=== PATIENT | male | born 1970 | race Caucasian/White ===

== ENCOUNTER 2017-08-31 06:06 | Emergency (ER) | payer OTHER ==
[~2017-08-31] VITALS: Ht 205.7 cm; Wt 101.2 kg
[~2017-08-31 06:06] MED LIST: CEPHALEXIN; GABA800T PO; HYDR-3924 PO; LOSA1TAB9 PO; SOM350 PO
[2017-08-31 06:18] VITALS: BP_SYST 144
--- NOTE | 2017-08-31 06:18 | NUR ---
Patient to ER bed 4 to gown for evaluation. Side rails up. Report given to VIK MCGHEE.
--- NOTE | 2017-08-31 06:20 | NUR ---
Pt is here for PICC line removal. Will continue to monitor. No distress noted. AAOx4.
--- NOTE | 2017-08-31 07:27 | NUR ---
Dr. Cortes at bedside
--- NOTE | 2017-08-31 07:45 | NUR ---
Advised pt that we will be getting a hold of PMD Dr. Askew regarding the PICC line
--- NOTE | 2017-08-31 08:10 | NUR ---
Patient does not wish to proceed with medical care recommended by Dr. Cortes. Patient given information related to possible complications, up to and including , which could occur as a result of leaving hospital at this time. Patient verbalizes understanding of risks involved leaving against medical advice. Patient has signed AMA form.
--- NOTE | 2017-08-31 08:10 | NUR ---
Told the pt that we cannot take out the PICC line until we got a hold of PMD. Pt states that he didn't want to wait anymore. Speaking with SUMI BABCOCK.
== END 2017-08-31 08:10 | disposition left against medical advice (07) ==
LOC: SED 06:06
DX: Z45.2 Encounter for adjustment and management of vascular access device (principal); Z90.89 Acquired absence of other organs; Z98.890 Other specified postprocedural states
CPT/HCPCS: 99281

== ENCOUNTER 2018-02-16 10:34 | Inpatient (IN) | payer OTHER ==
[~2018-02-16] VITALS: Ht 205.7 cm; Wt 100.7 kg
[2018-02-16 10:34] VITALS: BP_SYST 112
[2018-02-16] MEDS ORDERED: ONDANSETRON HCL 4 MG/2 ML VIAL IVP ONE (11:15)
[2018-02-16] MEDS ORDERED: MORPHINE 4 MG/ML INJ. SYRINGE IVP ONE ×3 (11:15→15:15)
[2018-02-16] MEDS ORDERED: ASPIRIN 81 MG TAB.CHEW PO ONE (11:15)
[2018-02-16 11:44] LABS: BASOPHILS % (AUTO) 0.5 % (0.0-2.0); EOSINOPHILS # (AUTO) 0.1 K/uL (0.0-0.4); EOSINOPHILS % (AUTO) 0.7 % (0.0-4.0); HEMOGLOBIN 7.6 g/dL (14.0-18.0); LYMPHOCYTES # (AUTO) 0.5 K/uL (1.0-5.5); LYMPHOCYTES % (AUTO) 6.3 % (20.5-51.5); MEAN CORPUSCULAR HEMOGLOBIN 28 pg (27-31); MEAN CORPUSCULAR HGB CONC 32 % (32-36); MEAN CORPUSCULAR VOLUME 87 fL (79.0-98.0); MONOCYTES # (AUTO) 0.6 K/uL (0.0-1.0); MONOCYTES % (AUTO) 7.2 % (1.7-9.3); NEUTROPHILS # (AUTO) 7.1 K/uL (1.8-7.7); NEUTROPHILS % (AUTO) 85.3 % (40.0-70.0); PLATELET COUNT (AUTO) 124 K/uL (130-430); RED BLOOD CELL COUNT(AUTO) 2.75 MIL/uL (4.2-6.2); RED CELL DISTRIBUTION WIDTH 18.1 % (9.0-15.0); WHITE BLOOD COUNT (AUTO) 8.3 K/uL (4.8-10.8)
[2018-02-16 11:48] LABS: ANION GAP 10 (5-15); CALCIUM 8.3 mg/dL (8.4-11.0); CHLORIDE 100 mmol/L (98-107); CREATININE 0.95 mg/dL (0.55-1.30); GLUCOSE 139 mg/dL (70-99); SODIUM SERUM 133 mmol/L (136-145); UREA NITROGEN, BLOOD 8 mg/dL (8-21)
[2018-02-16 11:50] LABS: GFR AFRICAN AMERICAN 108 mL/min (>90)
[2018-02-16 11:52] LABS: INR 1.6 (0.80-1.20); PROTHROMBIN TIME 15.6 SECS (9.5-12.5)
[2018-02-16 11:56] LABS: ALANINE AMINOTRANSFERASE 7 U/L (12-78); ALBUMIN 1.3 g/dL (3.4-4.8); ASPARTATE AMINOTRANSFERASE 21 U/L (10-37); TOTAL BILIRUBIN 4.3 mg/dL (0.0-1.0)
[2018-02-16 12:09] LABS: LIPASE 10993 U/L (73-393)
[2018-02-16] MEDS ORDERED: POTASSIUM CHLORIDE 20 MEQ TAB.PRT.SR PO ONE (12:45)
[2018-02-16] MEDS ORDERED: TRAZ-123 PO (12:46)
[2018-02-16] MEDS ORDERED: CLON1TAB5 PO (12:46)
[2018-02-16] MEDS ORDERED: TRAM50TA2 PO (12:46)
[2018-02-16] MEDS ORDERED: IOHEXOL 350 mgI/mL, 150 ML INFUS..BTL IV ONE (13:01)
[2018-02-16] MEDS ORDERED: PANTOPRAZOLE SODIUM 40 MG/VIAL (PROTONIX) IVP ONE (15:00)
[2018-02-16] MEDS ORDERED: NACL 0.9% 1,000 ML IV ONE (15:00)
[2018-02-16 15:03] LABS: BILIRUBIN,URINE 2+ (NEGATIVE); CLARITY/URINE CLEAR (CLEAR); GLUCOSE,URINE NEGATIVE (NEGATIVE); KETONES,URINE NEGATIVE (NEGATIVE); LEUKOCYTE ESTERASE ,URINE TRACE (NEGATIVE); NITRITE, URINE POSITIVE (NEGATIVE); PH,URINE 7.5 (5.0-8.0); PROTEIN URINE NEGATIVE (NEGATIVE)
[2018-02-16 15:17] LABS: BLOOD, URINE TRACE (NEGATIVE); COLOR,URINE AMBER (YELLOW); UROBILINOGEN,URINE >=8 (0.2-1.0)
[2018-02-16 15:19] LABS: BACTERIA,URINE MODERATE /HPF (None Seen); MUCUS,URINE None Seen /LPF (None Seen); RBC,URINE 0-3 /HPF (0-3)
[2018-02-16 15:26] VITALS: BP_SYST 121
[2018-02-16] MEDS: D5NS 1,000 ML IV SCH ×2 (15:56→23:15)
[2018-02-16 19:15] VITALS: BP_SYST 110
[2018-02-16] MEDS: MORPHINE 2 MG/ML INJ. SYRINGE IVP PRN ×2 (19:35→23:15)
[2018-02-16] MEDS: GABAPENTIN 400 MG CAPSULE PO SCH (21:00)
[2018-02-16 21:27] LABS: HEMATOCRIT 22.4 % (36-54)
[2018-02-16 21:29] LABS: HEMOGLOBIN 7.4 g/dL (14.0-18.0)
[2018-02-16] MEDS: PANTOPRAZOLE SODIUM 40 MG/VIAL (PROTONIX) IVP SCH (22:10)
[2018-02-17] VITALS (11 sets, daily range): BP systolic 94–115
[2018-02-17 02:55] LABS: HEMATOCRIT 22.8 % (36-54); HEMOGLOBIN 7.3 g/dL (14.0-18.0)
[2018-02-17] MEDS: MORPHINE 2 MG/ML INJ. SYRINGE IVP PRN ×3 (03:01→10:23)
[2018-02-17] MEDS: D5NS 1,000 ML IV SCH ×2 (06:40→17:07)
[2018-02-17] MEDS: clonazePAM 0.5 MG TABLET PO SCH (08:36)
[2018-02-17] MEDS: PANTOPRAZOLE SODIUM 40 MG/VIAL (PROTONIX) IVP SCH ×2 (08:37→20:17)
[2018-02-17] MEDS: GABAPENTIN 400 MG CAPSULE PO SCH ×4 (08:37→20:18)
[2018-02-17 09:03] LABS: HEMOGLOBIN 7.7 g/dL (14.0-18.0)
[2018-02-17] MEDS ORDERED: CARISOPRODOL 350 MG TABLET PO SCH (09:45)
[2018-02-17] MEDS ORDERED: HYDROcodone/ACETAMIN 7.5-325 MG TAB PO SCH (09:45)
[2018-02-17] MEDS ORDERED: traMADol HCL HCL 50 MG TABLET (ULTRAM) PO SCH (09:45)
[2018-02-17] MEDS: cefTRIAXone 1 GM in D5W 50 ML IV SCH (10:54)
[2018-02-17] MEDS ORDERED: NORMAL SALINE 5 ML DISP.SYRIN IVF SCH (14:00)
[2018-02-17] MEDS: MORPHINE 4 MG/ML INJ. SYRINGE IVP PRN ×3 (14:16→22:29)
[2018-02-17 15:41] LABS: HEMATOCRIT 24.1 % (36-54); HEMOGLOBIN 7.8 g/dL (14.0-18.0)
[2018-02-17] MEDS: traZODone HCL 50 MG TABLET (DESYREL) PO SCH (20:18)
[2018-02-17] MEDS: LACTULOSE 20 GM/30 ML UDC PO SCH (20:18)
[2018-02-17 21:19] LABS: HEMATOCRIT 24.1 % (36-54); HEMOGLOBIN 7.6 g/dL (14.0-18.0)
[2018-02-18] MEDS: D5NS 1,000 ML IV SCH ×3 (00:03→19:57)
[2018-02-18] MEDS: MORPHINE 4 MG/ML INJ. SYRINGE IVP PRN ×5 (03:57→21:08)
[2018-02-18 04:37] LABS: BASOPHILS # (AUTO) 0.1 K/uL (0.0-0.2); BASOPHILS % (AUTO) 1.2 % (0.0-2.0); EOSINOPHILS # (AUTO) 0.2 K/uL (0.0-0.4); EOSINOPHILS % (AUTO) 3.6 % (0.0-4.0); HEMATOCRIT 25.3 % (36-54); HEMOGLOBIN 8.2 g/dL (14.0-18.0); LYMPHOCYTES # (AUTO) 1.1 K/uL (1.0-5.5); LYMPHOCYTES % (AUTO) 21.1 % (20.5-51.5); MEAN CORPUSCULAR HEMOGLOBIN 29 pg (27-31); MEAN CORPUSCULAR HGB CONC 32 % (32-36); MEAN CORPUSCULAR VOLUME 88 fL (79.0-98.0); MONOCYTES # (AUTO) 0.4 K/uL (0.0-1.0); MONOCYTES % (AUTO) 7.2 % (1.7-9.3); NEUTROPHILS # (AUTO) 3.5 K/uL (1.8-7.7); NEUTROPHILS % (AUTO) 66.9 % (40.0-70.0); PLATELET COUNT (AUTO) 190 K/uL (130-430); RED BLOOD CELL COUNT(AUTO) 2.86 MIL/uL (4.2-6.2); RED CELL DISTRIBUTION WIDTH 17.1 % (9.0-15.0)
[2018-02-18 04:42] LABS: WHITE BLOOD COUNT (AUTO) 5.3 K/uL (4.8-10.8)
[2018-02-18 05:04] LABS: ALBUMIN 1.4 g/dL (3.4-4.8); CREATININE 0.82 mg/dL (0.55-1.30); POTASSIUM 3.5 mmol/L (3.5-5.1); TOTAL BILIRUBIN 2.1 mg/dL (0.0-1.0)
[2018-02-18 05:50] LABS: TOTAL IRON BIND. CAPACITY 133 ug/dL (250-450)
[2018-02-18 08:00] VITALS: BP_SYST 116
[2018-02-18] MEDS: GABAPENTIN 400 MG CAPSULE PO SCH ×4 (08:36→20:33)
[2018-02-18] MEDS: clonazePAM 0.5 MG TABLET PO SCH (08:37)
[2018-02-18] MEDS: LACTULOSE 20 GM/30 ML UDC PO SCH ×3 (08:37→20:39)
[2018-02-18] MEDS: PANTOPRAZOLE SODIUM 40 MG/VIAL (PROTONIX) IVP SCH ×2 (08:39→20:32)
[2018-02-18] MEDS: THIAMINE HCL 100 MG TABLET PO SCH (08:39)
[2018-02-18] MEDS: FUROSEMIDE 40 MG TABLET PO SCH (08:39)
[2018-02-18] MEDS: MULTIVITAMINS TAB 1 TABLET PO SCH (08:40)
[2018-02-18] MEDS: SPIRONOLACTONE 25 MG TABLET (ALDACTONE) PO SCH (08:40)
[2018-02-18] MEDS: FOLIC ACID 1 MG TABLET PO SCH (08:40)
[2018-02-18] MEDS: cefTRIAXone 1 GM in D5W 50 ML IV SCH (08:49)
[2018-02-18 12:00] VITALS: BP_SYST 110
[2018-02-18] MEDS: metroNIDAZOLE 500 MG TABLET PO SCH ×2 (14:32→21:07)
[2018-02-18 16:00] VITALS: BP_SYST 136
[2018-02-18 20:00] VITALS: BP_SYST 118
[2018-02-18] MEDS: traZODone HCL 50 MG TABLET (DESYREL) PO SCH (20:33)
[2018-02-18 23:49] VITALS: BP_SYST 135
[2018-02-19] MEDS: MORPHINE 4 MG/ML INJ. SYRINGE IVP PRN ×6 (00:59→21:20)
[2018-02-19] MEDS: metroNIDAZOLE 500 MG TABLET PO SCH ×3 (05:07→21:19)
[2018-02-19 06:59] LABS: BASOPHILS # (AUTO) 0.1 K/uL (0.0-0.2); BASOPHILS % (AUTO) 1.5 % (0.0-2.0); EOSINOPHILS # (AUTO) 0.2 K/uL (0.0-0.4); HEMATOCRIT 25.1 % (36-54); HEMOGLOBIN 8.1 g/dL (14.0-18.0); LYMPHOCYTES % (AUTO) 20.7 % (20.5-51.5); MEAN CORPUSCULAR HEMOGLOBIN 29 pg (27-31); MEAN CORPUSCULAR HGB CONC 32 % (32-36); MEAN CORPUSCULAR VOLUME 89 fL (79.0-98.0); MONOCYTES # (AUTO) 0.5 K/uL (0.0-1.0); MONOCYTES % (AUTO) 9.9 % (1.7-9.3); NEUTROPHILS # (AUTO) 3.2 K/uL (1.8-7.7); NEUTROPHILS % (AUTO) 63.9 % (40.0-70.0); PLATELET COUNT (AUTO) 170 K/uL (130-430); RED BLOOD CELL COUNT(AUTO) 2.84 MIL/uL (4.2-6.2); RED CELL DISTRIBUTION WIDTH 17.2 % (9.0-15.0)
[2018-02-19 07:04] LABS: ALBUMIN 1.5 g/dL (3.4-4.8); CALCIUM 8.1 mg/dL (8.4-11.0); CREATININE 0.9 mg/dL (0.55-1.30); TOTAL BILIRUBIN 1.7 mg/dL (0.0-1.0)
[2018-02-19 07:31] LABS: POTASSIUM 2.9 mmol/L (3.5-5.1)
[2018-02-19] MEDS ORDERED: POTASSIUM CHLORIDE 20 MEQ TAB.PRT.SR PO ONE (09:00)
[2018-02-19] MEDS: MULTIVITAMINS TAB 1 TABLET PO SCH (09:02)
[2018-02-19] MEDS: THIAMINE HCL 100 MG TABLET PO SCH (09:02)
[2018-02-19] MEDS: GABAPENTIN 400 MG CAPSULE PO SCH ×4 (09:02→20:37)
[2018-02-19] MEDS: PANTOPRAZOLE SODIUM 40 MG/VIAL (PROTONIX) IVP SCH ×2 (09:02→20:37)
[2018-02-19] MEDS: clonazePAM 0.5 MG TABLET PO SCH (09:03)
[2018-02-19] MEDS: SPIRONOLACTONE 25 MG TABLET (ALDACTONE) PO SCH (09:03)
[2018-02-19] MEDS: FUROSEMIDE 40 MG TABLET PO SCH (09:03)
[2018-02-19] MEDS: FOLIC ACID 1 MG TABLET PO SCH (09:03)
[2018-02-19] MEDS: LACTULOSE 20 GM/30 ML UDC PO SCH ×2 (09:04→20:37)
[2018-02-19] MEDS: cefTRIAXone 1 GM in D5W 50 ML IV SCH (09:09)
[2018-02-19] MEDS: D5NS 1,000 ML IV SCH (09:19)
[2018-02-19 12:22] VITALS: BP_SYST 118
[2018-02-19 17:14] VITALS: BP_SYST 122
[2018-02-19 19:50] VITALS: BP_SYST 129
[2018-02-19] MEDS: traZODone HCL 50 MG TABLET (DESYREL) PO SCH (20:37)
[2018-02-20] VITALS (7 sets, daily range): BP systolic 113–128
[2018-02-20] MEDS: MORPHINE 4 MG/ML INJ. SYRINGE IVP PRN ×6 (01:24→21:23)
[2018-02-20] MEDS: D5NS 1,000 ML IV SCH ×2 (01:57→17:13)
[2018-02-20] MEDS: metroNIDAZOLE 500 MG TABLET PO SCH ×3 (05:20→21:23)
[2018-02-20] MEDS: PANTOPRAZOLE SODIUM 40 MG/VIAL (PROTONIX) IVP SCH ×2 (09:18→21:22)
[2018-02-20] MEDS: GABAPENTIN 400 MG CAPSULE PO SCH ×4 (09:19→21:23)
[2018-02-20] MEDS: MULTIVITAMINS TAB 1 TABLET PO SCH (09:19)
[2018-02-20] MEDS: clonazePAM 0.5 MG TABLET PO SCH (09:19)
[2018-02-20] MEDS: FOLIC ACID 1 MG TABLET PO SCH (09:20)
[2018-02-20] MEDS: FUROSEMIDE 40 MG TABLET PO SCH (09:20)
[2018-02-20] MEDS: THIAMINE HCL 100 MG TABLET PO SCH (09:20)
[2018-02-20] MEDS: SPIRONOLACTONE 25 MG TABLET (ALDACTONE) PO SCH (09:21)
[2018-02-20] MEDS: LACTULOSE 20 GM/30 ML UDC PO SCH ×2 (09:23→21:22)
[2018-02-20] MEDS: cefTRIAXone 1 GM in D5W 50 ML IV SCH (09:28)
[2018-02-20] MEDS: traZODone HCL 50 MG TABLET (DESYREL) PO SCH (21:23)
[2018-02-21] VITALS: BP_SYST 115
[2018-02-21] MEDS: metroNIDAZOLE 500 MG TABLET PO SCH ×2 (05:29→13:37)
[2018-02-21 05:30] VITALS: BP_SYST 112
[2018-02-21] MEDS: MORPHINE 4 MG/ML INJ. SYRINGE IVP PRN ×3 (05:30→13:37)
[2018-02-21 06:23] LABS: BASOPHILS # (AUTO) 0.1 K/uL (0.0-0.2); BASOPHILS % (AUTO) 2.3 % (0.0-2.0); EOSINOPHILS # (AUTO) 0.4 K/uL (0.0-0.4); EOSINOPHILS % (AUTO) 6.8 % (0.0-4.0); HEMATOCRIT 25.1 % (36-54); LYMPHOCYTES # (AUTO) 1.2 K/uL (1.0-5.5); LYMPHOCYTES % (AUTO) 22.2 % (20.5-51.5); MEAN CORPUSCULAR HEMOGLOBIN 28 pg (27-31); MEAN CORPUSCULAR HGB CONC 32 % (32-36); MEAN CORPUSCULAR VOLUME 88 fL (79.0-98.0); MONOCYTES # (AUTO) 0.7 K/uL (0.0-1.0); MONOCYTES % (AUTO) 12.3 % (1.7-9.3); NEUTROPHILS # (AUTO) 2.9 K/uL (1.8-7.7); NEUTROPHILS % (AUTO) 56.4 % (40.0-70.0); PLATELET COUNT (AUTO) 179 K/uL (130-430); RED BLOOD CELL COUNT(AUTO) 2.85 MIL/uL (4.2-6.2); RED CELL DISTRIBUTION WIDTH 18.1 % (9.0-15.0); WHITE BLOOD COUNT (AUTO) 5.3 K/uL (4.8-10.8)
[2018-02-21 06:41] LABS: ALBUMIN 1.6 g/dL (3.4-4.8); CALCIUM 8.1 mg/dL (8.4-11.0); CREATININE 0.87 mg/dL (0.55-1.30); POTASSIUM 3.1 mmol/L (3.5-5.1); TOTAL BILIRUBIN 1.3 mg/dL (0.0-1.0)
[2018-02-21 07:15] LABS: HEMOGLOBIN 8.1 g/dL (14.0-18.0)
[2018-02-21] MEDS ORDERED: POTASSIUM CHLORIDE 20 MEQ TAB.PRT.SR PO ONE (07:30)
[2018-02-21] MEDS ORDERED: HYDROcodone/ACETAMIN 7.5-325 MG TAB PO PRN (07:47)
[2018-02-21] MEDS ORDERED: CARISOPRODOL 350 MG TABLET PO PRN (07:47)
[2018-02-21 08:00] VITALS: BP_SYST 113
[2018-02-21] MEDS: PANTOPRAZOLE SODIUM 40 MG/VIAL (PROTONIX) IVP SCH (09:12)
[2018-02-21] MEDS: GABAPENTIN 400 MG CAPSULE PO SCH ×2 (09:12→13:37)
[2018-02-21] MEDS: LACTULOSE 20 GM/30 ML UDC PO SCH (09:13)
[2018-02-21] MEDS: clonazePAM 0.5 MG TABLET PO SCH (09:13)
[2018-02-21] MEDS: THIAMINE HCL 100 MG TABLET PO SCH (09:13)
[2018-02-21] MEDS: MULTIVITAMINS TAB 1 TABLET PO SCH (09:13)
[2018-02-21] MEDS: FOLIC ACID 1 MG TABLET PO SCH (09:14)
[2018-02-21] MEDS: SPIRONOLACTONE 25 MG TABLET (ALDACTONE) PO SCH (09:14)
[2018-02-21] MEDS: FUROSEMIDE 40 MG TABLET PO SCH (09:14)
[2018-02-21] MEDS: cefTRIAXone 1 GM in D5W 50 ML IV SCH (09:15)
[2018-02-21 11:26] VITALS: BP_SYST 126
[2018-02-21] MEDS: D5NS 1,000 ML IV SCH (13:51)
[2018-02-21 14:59] VITALS: BP_SYST 111
[2018-02-21 15:23] VITALS: BP_SYST 123
== END 2018-02-21 15:50 | disposition home health service (06) | DRG 439 ==
LOC: SED 10:34 → STU 14:53
PROVIDERS: ADMIT Internal Medicine Hospice and Palliative Medicine; ATTEND Internal Medicine Hospice and Palliative Medicine
PROC: 30233N1 Transfusion of Nonautologous Red Blood Cells into Peripheral Vein, Percutaneous Approach (ICD-10-PCS; principal; 2018-02-17)
DX: K85.20 Alcohol induced acute pancreatitis without necrosis or infection (principal); K76.6 Portal hypertension; L97.828 Non-pressure chronic ulcer of other part of left lower leg with other specified severity; L97.818 Non-pressure chronic ulcer of other part of right lower leg with other specified severity; D64.9 Anemia, unspecified; K86.1 Other chronic pancreatitis; F10.20 Alcohol dependence, uncomplicated; K70.10 Alcoholic hepatitis without ascites; K74.60 Unspecified cirrhosis of liver; W18.30XA Fall on same level, unspecified, initial encounter; R16.2 Hepatomegaly with splenomegaly, not elsewhere classified; I10 Essential (primary) hypertension; K57.90 Diverticulosis of intestine, part unspecified, without perforation or abscess without bleeding; K80.80 Other cholelithiasis without obstruction; M14.679 Charcot's joint, unspecified ankle and foot; Z85.819 Personal history of malignant neoplasm of unspecified site of lip, oral cavity, and pharynx; Z90.49 Acquired absence of other specified parts of digestive tract; Y93.89 Activity, other specified; Y92.89 Other specified places as the place of occurrence of the external cause; Y99.8 Other external cause status; Z91.19 Patient's noncompliance with other medical treatment and regimen
CPT/HCPCS: 36415; 71045; 71275; 80053; 81000-TC; 82140-TC; 82550-TC; 83540-TC; 83550-TC; 83605; 83690-TC; 83880; 84484; 85018-TC; 85025; 85379; 85610-TC; 85730-TC; 86886; 86900; 86901; 86920; 87040-TC; 87081; 87086; 93005; 93970; 96374; 96375; 96376; 97116-GP; 97530-GP; 99285; C9113; J0696; J2270; J2405; J7042; J7060; P9021; Q9967

== ENCOUNTER 2018-03-27 08:02 | Inpatient (IN) | payer OTHER ==
[~2018-03-27] VITALS: Ht 205.7 cm; Wt 98.9 kg
[2018-03-27] VITALS (14 sets, daily range): BP systolic 116–157
[~2018-03-27 08:02] MED LIST changes: +CLON1TAB5 PO; +TRAM50TA2 PO; +TRAZ-123 PO
[2018-03-27] MEDS ORDERED: PANTOPRAZOLE SODIUM 40 MG/VIAL (PROTONIX) IVP ONE (08:30)
[2018-03-27] MEDS ORDERED: ONDANSETRON HCL 4 MG/2 ML VIAL IVP ONE (08:30)
[2018-03-27 08:37] LABS: BASOPHILS # (AUTO) 0.1 K/uL (0.0-0.2); BASOPHILS % (AUTO) 1.9 % (0.0-2.0); EOSINOPHILS # (AUTO) 0.2 K/uL (0.0-0.4); EOSINOPHILS % (AUTO) 2.5 % (0.0-4.0); HEMATOCRIT 32.9 % (36-54); HEMOGLOBIN 10.9 g/dL (14.0-18.0); LYMPHOCYTES # (AUTO) 1.8 K/uL (1.0-5.5); LYMPHOCYTES % (AUTO) 25.4 % (20.5-51.5); MEAN CORPUSCULAR HEMOGLOBIN 30 pg (27-31); MEAN CORPUSCULAR HGB CONC 33 % (32-36); MEAN CORPUSCULAR VOLUME 90 fL (79.0-98.0); MONOCYTES # (AUTO) 0.4 K/uL (0.0-1.0); MONOCYTES % (AUTO) 6.1 % (1.7-9.3); NEUTROPHILS # (AUTO) 4.7 K/uL (1.8-7.7); PLATELET COUNT (AUTO) 112 K/uL (130-430); RED BLOOD CELL COUNT(AUTO) 3.65 MIL/uL (4.2-6.2); RED CELL DISTRIBUTION WIDTH 17.6 % (9.0-15.0); WHITE BLOOD COUNT (AUTO) 7.2 K/uL (4.8-10.8)
[2018-03-27 08:45] LABS: CALCIUM 8.2 mg/dL (8.4-11.0); CREATININE 0.98 mg/dL (0.55-1.30)
[2018-03-27 08:48] LABS: INR 1.1 (0.80-1.20); PROTHROMBIN TIME 11.2 SECS (9.5-12.5)
[2018-03-27 08:50] LABS: ALBUMIN 2.7 g/dL (3.4-4.8); TOTAL BILIRUBIN 1.5 mg/dL (0.0-1.0)
[2018-03-27 09:08] LABS: POTASSIUM 2.9 mmol/L (3.5-5.1)
[2018-03-27] MEDS ORDERED: fentaNYL CITRATE/PF 100 MCG/2 ML AMP IVP ONE (09:30)
[2018-03-27] MEDS ORDERED: PROCHLORPERAZINE EDISYLATE 10 MG/2 ML VIAL IVP ONE (09:30)
[2018-03-27] MEDS ORDERED: NACL 0.9% 1,000 ML IV ONE (10:00)
[2018-03-27] MEDS ORDERED: KCL 20 mEq in 100 mL (PREMIX) 100 ML IV ONE (10:00)
[2018-03-27] MEDS ORDERED: ONDANSETRON HCL 4 MG/2 ML VIAL IVP PRN (10:15)
[2018-03-27] MEDS ORDERED: ACETAMINOPHEN 325 MG TABLET PO PRN (10:15)
[2018-03-27] MEDS ORDERED: OCTREOTIDE ACETATE 50 MCG/ML AMP IV ONE (10:30)
[2018-03-27] MEDS ORDERED: cefTRIAXone 1 GM in D5W 50 ML IV SCH (10:30)
[2018-03-27 10:57] LABS: NEUTROPHILS % (AUTO) 64.1 % (40.0-70.0)
[2018-03-27 12:48] LABS: BASOPHILS # (AUTO) 0.1 K/uL (0.0-0.2); EOSINOPHILS # (AUTO) 0.2 K/uL (0.0-0.4); MEAN CORPUSCULAR HEMOGLOBIN 30 pg (27-31); MEAN CORPUSCULAR HGB CONC 34 % (32-36)
[2018-03-27] MEDS: OCTREOTIDE ACETATE 500 MCG in NS 247.5 ML IV SCH (13:06)
[2018-03-27 13:07] LABS: HEMATOCRIT 29.2 % (36-54); HEMOGLOBIN 9.9 g/dL (14.0-18.0); PLATELET COUNT (AUTO) 77 K/uL (130-430); WHITE BLOOD COUNT (AUTO) 8.3 K/uL (4.8-10.8)
[2018-03-27 13:08] LABS: BASOPHILS % (AUTO) 1.4 % (0.0-2.0); EOSINOPHILS % (AUTO) 2.8 % (0.0-4.0); LYMPHOCYTES # (AUTO) 2.1 K/uL (1.0-5.5); LYMPHOCYTES % (AUTO) 25.3 % (20.5-51.5); MEAN CORPUSCULAR VOLUME 88 fL (79.0-98.0); MONOCYTES # (AUTO) 0.6 K/uL (0.0-1.0); MONOCYTES % (AUTO) 7.5 % (1.7-9.3); NEUTROPHILS # (AUTO) 5.3 K/uL (1.8-7.7); RED CELL DISTRIBUTION WIDTH 17.6 % (9.0-15.0)
[2018-03-27] MEDS: 0.45% NACL 1,000 ML IV SCH (13:50)
[2018-03-27] MEDS ORDERED: MORPHINE 4 MG/ML INJ. SYRINGE IVP PRN (14:30)
[2018-03-27] MEDS: PANTOPRAZOLE SODIUM 40 MG in NS 50 ML IV SCH ×3 (14:43→20:46)
[2018-03-27] MEDS: HYDROcodone/ACETAMIN 5-325 MG TAB (NORCO/ VICODIN) PO PRN ×2 (15:33→23:54)
[2018-03-27] MEDS: MORPHINE 4 MG/ML INJ. SYRINGE IVP PRN ×2 (18:07→20:47)
[2018-03-27] MEDS ORDERED: PANTOPRAZOLE SODIUM 40 MG/VIAL (PROTONIX) ONE (20:21)
[2018-03-27] MEDS ORDERED: ERTAPENEM SODIUM 1 GM/VIAL (INVANZ) ONE (23:44)
[2018-03-27] MEDS: ERTAPENEM SODIUM 1 GM in NS 50 ML IV SCH (23:48)
[2018-03-28] VITALS (24 sets, daily range): BP systolic 125–157
[2018-03-28] MEDS: MORPHINE 4 MG/ML INJ. SYRINGE IVP PRN ×6 (01:50→22:32)
[2018-03-28] MEDS ORDERED: PANTOPRAZOLE SODIUM 40 MG/VIAL (PROTONIX) ONE (04:51)
[2018-03-28] MEDS: 0.45% NACL 1,000 ML IV SCH ×3 (05:45→20:25)
[2018-03-28] MEDS: PANTOPRAZOLE SODIUM 40 MG in NS 50 ML IV SCH ×4 (05:45→20:25)
[2018-03-28 06:35] LABS: INR 1.2 (0.80-1.20); PROTHROMBIN TIME 11.8 SECS (9.5-12.5)
[2018-03-28] MEDS: HYDROcodone/ACETAMIN 5-325 MG TAB (NORCO/ VICODIN) PO PRN ×2 (07:18→15:03)
[2018-03-28 07:40] LABS: CREATININE 0.93 mg/dL (0.55-1.30); POTASSIUM 3.9 mmol/L (3.5-5.1)
[2018-03-28 07:59] LABS: ALBUMIN 2.5 g/dL (3.4-4.8); TOTAL BILIRUBIN 2.6 mg/dL (0.0-1.0)
[2018-03-28 08:38] LABS: BASOPHILS % (AUTO) 0.8 % (0.0-2.0); EOSINOPHILS # (AUTO) 0.1 K/uL (0.0-0.4); EOSINOPHILS % (AUTO) 3.6 % (0.0-4.0); HEMATOCRIT 28.5 % (36-54); HEMOGLOBIN 9.7 g/dL (14.0-18.0); LYMPHOCYTES # (AUTO) 0.9 K/uL (1.0-5.5); LYMPHOCYTES % (AUTO) 21.5 % (20.5-51.5); MEAN CORPUSCULAR HEMOGLOBIN 31 pg (27-31); MEAN CORPUSCULAR HGB CONC 34 % (32-36); MEAN CORPUSCULAR VOLUME 90 fL (79.0-98.0); MONOCYTES # (AUTO) 0.2 K/uL (0.0-1.0); MONOCYTES % (AUTO) 5.2 % (1.7-9.3); NEUTROPHILS % (AUTO) 68.9 % (40.0-70.0); RED BLOOD CELL COUNT(AUTO) 3.16 MIL/uL (4.2-6.2); RED CELL DISTRIBUTION WIDTH 16.8 % (9.0-15.0); WHITE BLOOD COUNT (AUTO) 4.2 K/uL (4.8-10.8)
[2018-03-28 08:43] LABS: PLATELET COUNT (AUTO) 42 K/uL (130-430)
[2018-03-28] MEDS: LORazepam 2 MG/ML VIAL IVP PRN (09:20)
[2018-03-28] MEDS: chlordiazePOXIDE HCL 25 MG CAPSULE PO SCH ×3 (09:20→20:25)
[2018-03-28] MEDS: OCTREOTIDE ACETATE 500 MCG in NS 247.5 ML IV SCH ×2 (09:58→10:30)
[2018-03-28 13:09] LABS: CHOLESTEROL 162 mg/dL (<200); HDL CHOLESTEROL 74 mg/dL (>45); LDL CHOLESTEROL 81 mg/dL (<100); TRIGLYCERIDES 76 mg/dL (30-150)
[2018-03-28 15:43] LABS: BILIRUBIN,URINE NEGATIVE (NEGATIVE); BLOOD, URINE 2+ (NEGATIVE); CLARITY/URINE SL HAZY (CLEAR); COLOR,URINE YELLOW (YELLOW); GLUCOSE,URINE NEGATIVE (NEGATIVE); KETONES,URINE TRACE (NEGATIVE); LEUKOCYTE ESTERASE ,URINE 2+ (NEGATIVE); NITRITE, URINE NEGATIVE (NEGATIVE); PH,URINE 7.5 (5.0-8.0); PROTEIN URINE NEGATIVE (NEGATIVE)
[2018-03-28 15:50] LABS: BACTERIA,URINE FEW /HPF (None Seen)
[2018-03-28 15:51] LABS: MUCUS,URINE None Seen /LPF (None Seen)
[2018-03-28] MEDS: BALSAM PERU/CASTOR OIL 60 GM OINT...G. TP SCH (17:26)
[2018-03-28] MEDS: ERTAPENEM SODIUM 1 GM in NS 50 ML IV SCH (22:32)
[2018-03-29] VITALS (19 sets, daily range): BP systolic 131–172
[2018-03-29 00:50] LABS: BILIRUBIN,URINE NEGATIVE (NEGATIVE); BLOOD, URINE 3+ (NEGATIVE); COLOR,URINE YELLOW (YELLOW); GLUCOSE,URINE NEGATIVE (NEGATIVE); KETONES,URINE NEGATIVE (NEGATIVE); LEUKOCYTE ESTERASE ,URINE 3+ (NEGATIVE); NITRITE, URINE NEGATIVE (NEGATIVE); PH,URINE 7.5 (5.0-8.0); PROTEIN URINE NEGATIVE (NEGATIVE)
[2018-03-29 00:56] LABS: CLARITY/URINE SLIGHTLY HAZY (CLEAR)
[2018-03-29 01:06] LABS: BACTERIA,URINE MODERATE /HPF (None Seen); RBC,URINE 20-50 /HPF (0-3); WBC,URINE 20-50 /HPF (0-3)
[2018-03-29] MEDS: PANTOPRAZOLE SODIUM 40 MG in NS 50 ML IV SCH ×3 (02:30→13:40)
[2018-03-29] MEDS: MORPHINE 4 MG/ML INJ. SYRINGE IVP PRN ×5 (02:30→19:54)
[2018-03-29] MEDS: LORazepam 2 MG/ML VIAL IVP PRN ×2 (04:24→10:56)
[2018-03-29 06:44] LABS: CALCIUM 8.4 mg/dL (8.4-11.0); CREATININE 0.9 mg/dL (0.55-1.30); POTASSIUM 3.3 mmol/L (3.5-5.1)
[2018-03-29 06:54] LABS: INR 1.2 (0.80-1.20); PROTHROMBIN TIME 12.5 SECS (9.5-12.5)
[2018-03-29 06:59] LABS: ALBUMIN 2.6 g/dL (3.4-4.8); TOTAL BILIRUBIN 2.2 mg/dL (0.0-1.0)
[2018-03-29 08:11] LABS: EOSINOPHILS # (AUTO) 0.2 K/uL (0.0-0.4); EOSINOPHILS % (AUTO) 6.9 % (0.0-4.0); HEMATOCRIT 27.8 % (36-54); HEMOGLOBIN 9.2 g/dL (14.0-18.0); LYMPHOCYTES # (AUTO) 0.8 K/uL (1.0-5.5); MEAN CORPUSCULAR HEMOGLOBIN 30 pg (27-31); MEAN CORPUSCULAR HGB CONC 33 % (32-36); MEAN CORPUSCULAR VOLUME 90 fL (79.0-98.0); MONOCYTES # (AUTO) 0.2 K/uL (0.0-1.0); MONOCYTES % (AUTO) 5.9 % (1.7-9.3); RED BLOOD CELL COUNT(AUTO) 3.09 MIL/uL (4.2-6.2); RED CELL DISTRIBUTION WIDTH 17.3 % (9.0-15.0); WHITE BLOOD COUNT (AUTO) 3.2 K/uL (4.8-10.8)
[2018-03-29] MEDS: OCTREOTIDE ACETATE 500 MCG in NS 247.5 ML IV SCH (08:15)
[2018-03-29 08:28] LABS: PLATELET COUNT (AUTO) 31 K/uL (130-430)
[2018-03-29] MEDS ORDERED: POTASSIUM CHLORIDE 20 MEQ TAB.PRT.SR PO ONE (08:45)
[2018-03-29] MEDS ORDERED: BALSAM PERU/CASTOR OIL 60 GM OINT...G. TP SCH (09:00)
[2018-03-29] MEDS: chlordiazePOXIDE HCL 25 MG CAPSULE PO SCH ×3 (09:00→21:09)
[2018-03-29] MEDS: BALSAM PERU/CASTOR OIL 60 GM OINT...G. TP SCH (09:09)
[2018-03-29] MEDS ORDERED: SIMETHICONE 40 MG/0.6 ML ML ONE (09:38)
[2018-03-29] MEDS ORDERED: DIPHENHYDRAMINE INJ 50 MG/ML VIAL ONE (09:38)
[2018-03-29] MEDS ORDERED: POTASSIUM CHLORIDE 40 MEQ, LIDOCAINE JECT 2% PF 100 MG 50 MG in NS 250 ML IV ONE (10:15)
[2018-03-29] MEDS: 0.45% NACL 1,000 ML IV SCH (10:55)
[2018-03-29 11:24] LABS: NEUTROPHILS % (AUTO) 60.2 % (40.0-70.0)
[2018-03-29] MEDS: MIDAZOLAM HCL 5 MG/5 ML VIAL ONE ×4 (12:03→12:13)
[2018-03-29] MEDS: MEPERIDINE HCL/PF 100 MG/ML AMP ONE ×2 (12:03→12:05)
[2018-03-29] MEDS: PANTOPRAZOLE SODIUM 40 MG/VIAL (PROTONIX) IVP SCH (21:09)
[2018-03-29] MEDS: ERTAPENEM SODIUM 1 GM in NS 50 ML IV SCH (21:10)
[2018-03-30] MEDS: MORPHINE 4 MG/ML INJ. SYRINGE IVP PRN ×3 (00:12→08:06)
[2018-03-30 00:24] VITALS: BP_SYST 126
[2018-03-30] MEDS: 0.45% NACL 1,000 ML IV SCH (06:24)
[2018-03-30 07:47] LABS: BASOPHILS % (AUTO) 0.8 % (0.0-2.0); EOSINOPHILS # (AUTO) 0.2 K/uL (0.0-0.4); EOSINOPHILS % (AUTO) 6.6 % (0.0-4.0); HEMATOCRIT 28.3 % (36-54); HEMOGLOBIN 9.3 g/dL (14.0-18.0); LYMPHOCYTES # (AUTO) 0.7 K/uL (1.0-5.5); LYMPHOCYTES % (AUTO) 21.9 % (20.5-51.5); MEAN CORPUSCULAR HEMOGLOBIN 30 pg (27-31); MEAN CORPUSCULAR HGB CONC 33 % (32-36); MEAN CORPUSCULAR VOLUME 91 fL (79.0-98.0); MONOCYTES # (AUTO) 0.2 K/uL (0.0-1.0); NEUTROPHILS # (AUTO) 2.2 K/uL (1.8-7.7); NEUTROPHILS % (AUTO) 64.7 % (40.0-70.0); RED BLOOD CELL COUNT(AUTO) 3.11 MIL/uL (4.2-6.2); RED CELL DISTRIBUTION WIDTH 17.1 % (9.0-15.0); WHITE BLOOD COUNT (AUTO) 3.3 K/uL (4.8-10.8)
[2018-03-30 08:03] VITALS: BP_SYST 140
[2018-03-30] MEDS: PANTOPRAZOLE SODIUM 40 MG/VIAL (PROTONIX) IVP SCH (08:06)
[2018-03-30 08:20] LABS: PLATELET COUNT (AUTO) 36 K/uL (130-430)
[2018-03-30 08:27] LABS: ALBUMIN 2.7 g/dL (3.4-4.8); CALCIUM 8.6 mg/dL (8.4-11.0); CREATININE 0.8 mg/dL (0.55-1.30); POTASSIUM 3.6 mmol/L (3.5-5.1); TOTAL BILIRUBIN 1.5 mg/dL (0.0-1.0)
[2018-03-30] MEDS: chlordiazePOXIDE HCL 25 MG CAPSULE PO SCH (08:47)
[2018-03-30] MEDS: BALSAM PERU/CASTOR OIL 60 GM OINT...G. TP SCH (09:00)
[2018-03-30] MEDS ORDERED: PRO40 PO (10:23)
[2018-03-30] MEDS ORDERED: NITR-85 PO (10:27)
[2018-03-30 10:39] VITALS: BP_SYST 140
[2018-03-30 11:35] VITALS: BP_SYST 129
== END 2018-03-30 11:15 | disposition home or self-care (01) | DRG 378 ==
LOC: SED 08:02 → SIC 11:40 → SMU 03-29 17:32
PROVIDERS: ADMIT Internal Medicine; ATTEND Internal Medicine
PROC: 0DB68ZX Excision of Stomach, Via Natural or Artificial Opening Endoscopic, Diagnostic (ICD-10-PCS; principal; 2018-03-29 12:00)
DX: K29.71 Gastritis, unspecified, with bleeding (principal); D61.818 Other pancytopenia; K76.6 Portal hypertension; N39.0 Urinary tract infection, site not specified; E78.1 Pure hyperglyceridemia; I10 Essential (primary) hypertension; G62.9 Polyneuropathy, unspecified; K70.30 Alcoholic cirrhosis of liver without ascites; G89.29 Other chronic pain; B96.20 Unspecified Escherichia coli [E. coli] as the cause of diseases classified elsewhere; Z16.12 Extended spectrum beta lactamase (ESBL) resistance; K44.9 Diaphragmatic hernia without obstruction or gangrene; K31.89 Other diseases of stomach and duodenum; F10.21 Alcohol dependence, in remission; M14.679 Charcot's joint, unspecified ankle and foot; Z87.891 Personal history of nicotine dependence; Z86.14 Personal history of Methicillin resistant Staphylococcus aureus infection; Z85.819 Personal history of malignant neoplasm of unspecified site of lip, oral cavity, and pharynx; Z90.49 Acquired absence of other specified parts of digestive tract; Z79.899 Other long term (current) drug therapy
CPT/HCPCS: 36415; 43239; 71045; 76700-TC; 80053; 80061; 81000-TC; 82105; 83690-TC; 85025; 85610-TC; 85730-TC; 86886; 86900; 86901; 87081; 87086; 93005; 96365; 96375; 99291; C9113; G0482; J0696; J0780; J1200; J1335; J2060; J2175; J2250; J2270; J2354; J2405; J3010; J3480; J7030; J7040; J7050; J7060

== ENCOUNTER 2018-04-05 07:30 | Inpatient (IN) | payer OTHER ==
[~2018-04-05] VITALS: Ht 205.7 cm; Wt 98.9 kg
[2018-04-05 07:30] VITALS: BP_SYST 151
[~2018-04-05 07:30] MED LIST changes: -LOSA1TAB9 PO; +NITR-85 PO; +PRO40 PO
[2018-04-05] MEDS ORDERED: PANTOPRAZOLE SODIUM 40 MG/VIAL (PROTONIX) IVP ONE (08:00)
[2018-04-05] MEDS ORDERED: ONDANSETRON HCL 4 MG/2 ML VIAL IVP ONE (08:00)
[2018-04-05] MEDS ORDERED: NACL 0.9% 1,000 ML IV ONE ×3 (08:00→12:15)
[2018-04-05 08:39] LABS: BASOPHILS # (AUTO) 0.1 K/uL (0.0-0.2); BASOPHILS % (AUTO) 1.3 % (0.0-2.0); EOSINOPHILS % (AUTO) 0.3 % (0.0-4.0); HEMOGLOBIN 9.9 g/dL (14.0-18.0); LYMPHOCYTES # (AUTO) 0.9 K/uL (1.0-5.5); MEAN CORPUSCULAR HEMOGLOBIN 31 pg (27-31); MEAN CORPUSCULAR HGB CONC 35 % (32-36); MEAN CORPUSCULAR VOLUME 88 fL (79.0-98.0); MONOCYTES # (AUTO) 0.6 K/uL (0.0-1.0); MONOCYTES % (AUTO) 11.1 % (1.7-9.3); NEUTROPHILS % (AUTO) 71.3 % (40.0-70.0); PLATELET COUNT (AUTO) 51 K/uL (130-430); RED BLOOD CELL COUNT(AUTO) 3.19 MIL/uL (4.2-6.2); RED CELL DISTRIBUTION WIDTH 16.9 % (9.0-15.0); WHITE BLOOD COUNT (AUTO) 5.6 K/uL (4.8-10.8)
[2018-04-05 09:00] LABS: INR 1.2 (0.80-1.20); PROTHROMBIN TIME 12.1 SECS (9.5-12.5)
[2018-04-05 09:12] LABS: CALCIUM 8.3 mg/dL (8.4-11.0); CREATININE 1.04 mg/dL (0.55-1.30); POTASSIUM 3.4 mmol/L (3.5-5.1)
[2018-04-05 09:18] LABS: ALBUMIN 2.7 g/dL (3.4-4.8); TOTAL BILIRUBIN 1.5 mg/dL (0.0-1.0)
[2018-04-05] MEDS ORDERED: PROCHLORPERAZINE EDISYLATE 10 MG/2 ML VIAL IVP ONE (12:15)
[2018-04-05] MEDS ORDERED: LORazepam 2 MG/ML VIAL (FOR ER USE) IVP ONE (12:30)
[2018-04-05 16:00] VITALS: BP_SYST 138
[2018-04-05 16:33] VITALS: BP_SYST 138
[2018-04-05] MEDS: BALSAM PERU/CASTOR OIL 60 GM OINT...G. TP SCH (17:00)
[2018-04-05] MEDS: BANANA BAG 1 EA, FOLIC ACID 1 MG, THIAMINE HCL 100 MG, MAGNESIUM SULFATE 1 GM, MVI 10 M... IV SCH ×5 (18:25)
[2018-04-05 19:51] VITALS: BP_SYST 129
[2018-04-05] MEDS: MORPHINE 4 MG/ML INJ. SYRINGE IVP PRN (20:01)
[2018-04-05] MEDS: D5NS 1,000 ML IV SCH (22:36)
[2018-04-06] MEDS: MORPHINE 4 MG/ML INJ. SYRINGE IVP PRN ×6 (00:08→22:56)
[2018-04-06 00:40] VITALS: BP_SYST 134
[2018-04-06] MEDS: LORazepam 2 MG/ML VIAL IVP PRN ×4 (01:29→20:12)
[2018-04-06 08:25] VITALS: BP_SYST 143
[2018-04-06] MEDS: D5NS 1,000 ML IV SCH ×3 (08:27→22:56)
[2018-04-06 09:07] LABS: EOSINOPHILS # (AUTO) 0.1 K/uL (0.0-0.4); EOSINOPHILS % (AUTO) 1.9 % (0.0-4.0); HEMOGLOBIN 7.8 g/dL (14.0-18.0); LYMPHOCYTES # (AUTO) 0.8 K/uL (1.0-5.5); MEAN CORPUSCULAR HEMOGLOBIN 29 pg (27-31); MONOCYTES # (AUTO) 0.3 K/uL (0.0-1.0); RED CELL DISTRIBUTION WIDTH 17.1 % (9.0-15.0)
[2018-04-06 09:25] LABS: ALBUMIN 2.4 g/dL (3.4-4.8); TOTAL BILIRUBIN 2.5 mg/dL (0.0-1.0)
[2018-04-06 09:34] LABS: BASOPHILS % (AUTO) 0.7 % (0.0-2.0); HEMATOCRIT 24.9 % (36-54); LYMPHOCYTES % (AUTO) 25.9 % (20.5-51.5); MEAN CORPUSCULAR HGB CONC 32 % (32-36); MEAN CORPUSCULAR VOLUME 91 fL (79.0-98.0); MONOCYTES % (AUTO) 9.6 % (1.7-9.3); NEUTROPHILS # (AUTO) 1.9 K/uL (1.8-7.7); NEUTROPHILS % (AUTO) 61.9 % (40.0-70.0); RED BLOOD CELL COUNT(AUTO) 2.72 MIL/uL (4.2-6.2); WHITE BLOOD COUNT (AUTO) 3.1 K/uL (4.8-10.8)
[2018-04-06 09:48] LABS: CALCIUM 7.6 mg/dL (8.4-11.0); CREATININE 0.72 mg/dL (0.55-1.30); POTASSIUM 3.2 mmol/L (3.5-5.1)
[2018-04-06 10:07] LABS: PLATELET COUNT (AUTO) 17 K/uL (130-430)
[2018-04-06 14:17] VITALS: BP_SYST 142
[2018-04-06] MEDS: BALSAM PERU/CASTOR OIL 60 GM OINT...G. TP SCH (15:47)
[2018-04-06 17:07] VITALS: BP_SYST 126
[2018-04-06] MEDS: BANANA BAG 1 EA, FOLIC ACID 1 MG, THIAMINE HCL 100 MG, MAGNESIUM SULFATE 1 GM, MVI 10 M... IV SCH ×5 (17:14)
[2018-04-06] MEDS: DOXYCYCLINE HYCLATE 100 MG CAPSULE PO SCH (20:12)
[2018-04-06 20:25] VITALS: BP_SYST 146
[2018-04-07] MEDS: MORPHINE 4 MG/ML INJ. SYRINGE IVP PRN ×2 (03:09→08:30)
[2018-04-07 04:38] VITALS: BP_SYST 146
[2018-04-07] MEDS: LORazepam 2 MG/ML VIAL IVP PRN ×3 (05:57→19:50)
[2018-04-07 07:55] LABS: TOTAL IRON BIND. CAPACITY 205 ug/dL (250-450)
[2018-04-07 08:00] VITALS: BP_SYST 149
[2018-04-07] MEDS: BALSAM PERU/CASTOR OIL 60 GM OINT...G. TP SCH (08:25)
[2018-04-07] MEDS: DOXYCYCLINE HYCLATE 100 MG CAPSULE PO SCH ×2 (08:25→22:50)
[2018-04-07] MEDS: D5NS 1,000 ML IV SCH ×2 (08:30→18:58)
[2018-04-07 08:38] LABS: THYROID STIMULATING HORMONE 1.45 uIu/mL (0.34-4.82)
[2018-04-07] MEDS ORDERED: ACETAMINOPHEN 650 MG/20.3 ML UDC PO PRN (09:45)
[2018-04-07] MEDS ORDERED: CARISOPRODOL 350 MG TABLET PO SCH (09:45)
[2018-04-07] MEDS ORDERED: traMADol HCL HCL 50 MG TABLET (ULTRAM) PO PRN (09:45)
[2018-04-07] MEDS ORDERED: HYDROcodone/ACETAMIN 7.5-325 MG TAB PO PRN (09:45)
[2018-04-07] MEDS ORDERED: ONDANSETRON HCL 4 MG/2 ML VIAL IM PRN (09:45)
[2018-04-07] MEDS ORDERED: FUROSEMIDE 20 MG TABLET PO ONE (10:00)
[2018-04-07] MEDS ORDERED: SPIRONOLACTONE 25 MG TABLET (ALDACTONE) PO ONE (10:00)
[2018-04-07] MEDS ORDERED: PANTOPRAZOLE SODIUM 40 MG TAB PO ONE (10:15)
[2018-04-07] MEDS ORDERED: clonazePAM 0.5 MG TABLET PO ONE (10:15)
[2018-04-07] MEDS: LACTULOSE 20 GM/30 ML UDC PO ONE ×2 (11:00→11:03)
[2018-04-07] MEDS: GABAPENTIN 400 MG CAPSULE PO SCH ×3 (12:05→22:50)
[2018-04-07 12:24] VITALS: BP_SYST 149
[2018-04-07 16:00] VITALS: BP_SYST 127
[2018-04-07] MEDS: BANANA BAG 1 EA, FOLIC ACID 1 MG, THIAMINE HCL 100 MG, MAGNESIUM SULFATE 1 GM, MVI 10 M... IV SCH ×5 (16:50)
[2018-04-07 20:45] VITALS: BP_SYST 138
[2018-04-07] MEDS: LACTULOSE 20 GM/30 ML UDC PO SCH (21:00)
[2018-04-07] MEDS ORDERED: PANTOPRAZOLE SODIUM 40 MG TAB PO SCH (21:00)
[2018-04-07] MEDS: traZODone HCL 50 MG TABLET (DESYREL) PO SCH (22:50)
[2018-04-07] MEDS: SPIRONOLACTONE 25 MG TABLET (ALDACTONE) PO SCH (22:51)
[2018-04-08 01:05] VITALS: BP_SYST 129
[2018-04-08] MEDS: MORPHINE 4 MG/ML INJ. SYRINGE IVP PRN ×4 (01:36→20:11)
[2018-04-08] MEDS: LORazepam 2 MG/ML VIAL IVP PRN ×3 (03:03→22:56)
[2018-04-08] MEDS: D5NS 1,000 ML IV SCH ×2 (05:00→17:05)
[2018-04-08 07:46] VITALS: BP_SYST 146
[2018-04-08] MEDS: PANTOPRAZOLE SODIUM 40 MG TAB PO SCH (08:13)
[2018-04-08] MEDS: SPIRONOLACTONE 25 MG TABLET (ALDACTONE) PO SCH ×2 (08:13→20:16)
[2018-04-08] MEDS: FUROSEMIDE 20 MG TABLET PO SCH (08:13)
[2018-04-08] MEDS: GABAPENTIN 400 MG CAPSULE PO SCH ×4 (08:14→20:12)
[2018-04-08] MEDS: DOXYCYCLINE HYCLATE 100 MG CAPSULE PO SCH ×2 (08:14→20:05)
[2018-04-08] MEDS: clonazePAM 0.5 MG TABLET PO SCH (08:14)
[2018-04-08] MEDS: BALSAM PERU/CASTOR OIL 60 GM OINT...G. TP SCH (08:15)
[2018-04-08] MEDS: LACTULOSE 20 GM/30 ML UDC PO SCH ×2 (08:15→20:13)
[2018-04-08 09:30] LABS: ALBUMIN 2.4 g/dL (3.4-4.8); CALCIUM 8.2 mg/dL (8.4-11.0); CREATININE 0.72 mg/dL (0.55-1.30); TOTAL BILIRUBIN 2.2 mg/dL (0.0-1.0)
[2018-04-08 09:48] LABS: BASOPHILS # (AUTO) 0.1 K/uL (0.0-0.2); BASOPHILS % (AUTO) 1.9 % (0.0-2.0); EOSINOPHILS # (AUTO) 0.1 K/uL (0.0-0.4); EOSINOPHILS % (AUTO) 3.5 % (0.0-4.0); HEMATOCRIT 25.2 % (36-54); HEMOGLOBIN 7.9 g/dL (14.0-18.0); LYMPHOCYTES # (AUTO) 0.8 K/uL (1.0-5.5); LYMPHOCYTES % (AUTO) 24.1 % (20.5-51.5); MEAN CORPUSCULAR HEMOGLOBIN 29 pg (27-31); MEAN CORPUSCULAR HGB CONC 31 % (32-36); MEAN CORPUSCULAR VOLUME 93 fL (79.0-98.0); MONOCYTES # (AUTO) 0.2 K/uL (0.0-1.0); MONOCYTES % (AUTO) 6.8 % (1.7-9.3); NEUTROPHILS # (AUTO) 2.2 K/uL (1.8-7.7); RED BLOOD CELL COUNT(AUTO) 2.72 MIL/uL (4.2-6.2); RED CELL DISTRIBUTION WIDTH 15.7 % (9.0-15.0); WHITE BLOOD COUNT (AUTO) 3.4 K/uL (4.8-10.8)
[2018-04-08 10:01] LABS: PLATELET COUNT (AUTO) 30 K/uL (130-430)
[2018-04-08 10:03] LABS: POTASSIUM 2.3 mmol/L (3.5-5.1)
[2018-04-08 11:53] VITALS: BP_SYST 128
[2018-04-08] MEDS: POTASSIUM CHLORIDE 40 MEQ in NS 250 ML IV SCH ×2 (13:17→16:35)
[2018-04-08 14:48] LABS: NEUTROPHILS % (AUTO) 63.7 % (40.0-70.0)
[2018-04-08 18:13] VITALS: BP_SYST 116
[2018-04-08 19:49] VITALS: BP_SYST 139
[2018-04-08] MEDS: traZODone HCL 50 MG TABLET (DESYREL) PO SCH (20:06)
[2018-04-08] MEDS: BANANA BAG 1 EA, FOLIC ACID 1 MG, THIAMINE HCL 100 MG, MAGNESIUM SULFATE 1 GM, MVI 10 M... IV SCH ×5 (20:13)
[2018-04-08 23:45] VITALS: BP_SYST 132
[2018-04-09] MEDS: D5NS 1,000 ML IV SCH ×2 (00:51→10:50)
[2018-04-09] MEDS: MORPHINE 4 MG/ML INJ. SYRINGE IVP PRN ×2 (00:51→06:34)
[2018-04-09] MEDS: LORazepam 2 MG/ML VIAL IVP PRN (04:02)
[2018-04-09 07:06] LABS: BASOPHILS % (AUTO) 1.4 % (0.0-2.0); EOSINOPHILS # (AUTO) 0.1 K/uL (0.0-0.4); EOSINOPHILS % (AUTO) 3.7 % (0.0-4.0); HEMATOCRIT 23.9 % (36-54); HEMOGLOBIN 7.9 g/dL (14.0-18.0); LYMPHOCYTES # (AUTO) 0.8 K/uL (1.0-5.5); LYMPHOCYTES % (AUTO) 25.2 % (20.5-51.5); MEAN CORPUSCULAR HEMOGLOBIN 31 pg (27-31); MEAN CORPUSCULAR HGB CONC 33 % (32-36); MEAN CORPUSCULAR VOLUME 93 fL (79.0-98.0); MONOCYTES # (AUTO) 0.3 K/uL (0.0-1.0); MONOCYTES % (AUTO) 9.9 % (1.7-9.3); NEUTROPHILS # (AUTO) 2.2 K/uL (1.8-7.7); NEUTROPHILS % (AUTO) 59.8 % (40.0-70.0); RED BLOOD CELL COUNT(AUTO) 2.56 MIL/uL (4.2-6.2); RED CELL DISTRIBUTION WIDTH 16.5 % (9.0-15.0); WHITE BLOOD COUNT (AUTO) 3.4 K/uL (4.8-10.8)
[2018-04-09 07:47] LABS: PLATELET COUNT (AUTO) 35 K/uL (130-430)
[2018-04-09 07:55] LABS: CALCIUM 7.5 mg/dL (8.4-11.0); CREATININE 0.83 mg/dL (0.55-1.30)
[2018-04-09 08:08] LABS: ALBUMIN 2.2 g/dL (3.4-4.8); TOTAL BILIRUBIN 1.4 mg/dL (0.0-1.0)
[2018-04-09 08:30] VITALS: BP_SYST 117
[2018-04-09 08:40] VITALS: BP_SYST 125
[2018-04-09] MEDS: FUROSEMIDE 20 MG TABLET PO SCH (09:00)
[2018-04-09] MEDS: LACTULOSE 20 GM/30 ML UDC PO SCH (09:00)
[2018-04-09] MEDS ORDERED: POTASSIUM CHLORIDE 20 MEQ TAB.PRT.SR PO ONE ×3 (09:30→13:30)
[2018-04-09] MEDS: GABAPENTIN 400 MG CAPSULE PO SCH (09:38)
[2018-04-09] MEDS: clonazePAM 0.5 MG TABLET PO SCH (09:38)
[2018-04-09] MEDS: PANTOPRAZOLE SODIUM 40 MG TAB PO SCH (09:38)
[2018-04-09] MEDS: SPIRONOLACTONE 25 MG TABLET (ALDACTONE) PO SCH (09:38)
[2018-04-09] MEDS: DOXYCYCLINE HYCLATE 100 MG CAPSULE PO SCH (09:39)
[2018-04-09 12:30] VITALS: BP_SYST 134
[2018-04-10 03:07] LABS: FERRITIN 249 ng/mL (30-400); FOLATE (FOLIC ACID) >20.0 ng/mL (>3.0)
== END 2018-04-09 13:15 | disposition left against medical advice (07) | DRG 554 ==
LOC: SED 07:30 → SMU 15:17
PROVIDERS: ADMIT Internal Medicine Hospice and Palliative Medicine; ATTEND Internal Medicine Hospice and Palliative Medicine
PROC: 30233R1 Transfusion of Nonautologous Platelets into Peripheral Vein, Percutaneous Approach (ICD-10-PCS; principal; 2018-04-07)
PROC: 30233N1 Transfusion of Nonautologous Red Blood Cells into Peripheral Vein, Percutaneous Approach (ICD-10-PCS; 2018-04-07)
DX: M14.671 Charcot's joint, right ankle and foot (principal); M14.672 Charcot's joint, left ankle and foot; K29.20 Alcoholic gastritis without bleeding; K70.30 Alcoholic cirrhosis of liver without ascites; F10.229 Alcohol dependence with intoxication, unspecified; G62.9 Polyneuropathy, unspecified; F17.210 Nicotine dependence, cigarettes, uncomplicated; L89.899 Pressure ulcer of other site, unspecified stage; I10 Essential (primary) hypertension; D69.6 Thrombocytopenia, unspecified; D64.9 Anemia, unspecified; Z85.819 Personal history of malignant neoplasm of unspecified site of lip, oral cavity, and pharynx; Z79.899 Other long term (current) drug therapy
CPT/HCPCS: 36415; 71045; 73721; 80053; 82550-TC; 82607; 82728; 82746; 82962; 83540-TC; 83550-TC; 83615-TC; 83690-TC; 84443-TC; 84484; 85025; 85610-TC; 85730-TC; 86140; 86886; 86900; 86901; 86920; 87070-TC; 87075-TC; 87081; 87186-TC; 93005; 96361; 96374; 96375; 99285; C9113; G0482; J0780; J2060; J2270; J2405; J3411; J3475; J3480; J3490; J7030; J7040; J7042; J7050; P9021; P9034

== ENCOUNTER 2018-05-02 19:37 | Inpatient (IN) | payer OTHER ==
[~2018-05-02] VITALS: Ht 190.5 cm; Wt 94.8 kg
[2018-05-02 19:41] VITALS: BP_SYST 151
[2018-05-02] MEDS ORDERED: NACL 0.9% 1,000 ML IV ONE (19:45)
[2018-05-02] MEDS ORDERED: ONDANSETRON HCL 4 MG/2 ML VIAL IVP ONE (20:00)
[2018-05-02 20:03] LABS: BASOPHILS % (AUTO) 0.6 % (0.0-2.0); EOSINOPHILS % (AUTO) 0.1 % (0.0-4.0); HEMATOCRIT 30.6 % (36-54); HEMOGLOBIN 10.5 g/dL (14.0-18.0); LYMPHOCYTES # (AUTO) 0.6 K/uL (1.0-5.5); LYMPHOCYTES % (AUTO) 8.1 % (20.5-51.5); MEAN CORPUSCULAR HEMOGLOBIN 30 pg (27-31); MEAN CORPUSCULAR HGB CONC 35 % (32-36); MEAN CORPUSCULAR VOLUME 88 fL (79.0-98.0); MONOCYTES # (AUTO) 0.4 K/uL (0.0-1.0); MONOCYTES % (AUTO) 5.2 % (1.7-9.3); NEUTROPHILS # (AUTO) 6.4 K/uL (1.8-7.7); PLATELET COUNT (AUTO) 78 K/uL (130-430); RED BLOOD CELL COUNT(AUTO) 3.48 MIL/uL (4.2-6.2); RED CELL DISTRIBUTION WIDTH 16.5 % (9.0-15.0); WHITE BLOOD COUNT (AUTO) 7.4 K/uL (4.8-10.8)
[2018-05-02] MEDS ORDERED: LORazepam 2 MG/ML VIAL (FOR ER USE) IVP ONE ×2 (20:15→20:30)
[2018-05-02 20:18] LABS: ANION GAP 15 (5-15); CALCIUM 8.9 mg/dL (8.4-11.0); CHLORIDE 92 mmol/L (98-107); CREATININE 1.19 mg/dL (0.55-1.30); GLUCOSE 189 mg/dL (70-99); SODIUM SERUM 128 mmol/L (136-145); UREA NITROGEN, BLOOD 4 mg/dL (8-21)
[2018-05-02 20:20] LABS: GFR AFRICAN AMERICAN 84 mL/min (>90)
[2018-05-02] MEDS ORDERED: LORazepam 2 MG/ML VIAL (FOR ER USE) ONE ×2 (20:20→20:30)
[2018-05-02 20:23] LABS: ALANINE AMINOTRANSFERASE 27 U/L (12-78); ALBUMIN 2.8 g/dL (3.4-4.8); ASPARTATE AMINOTRANSFERASE 40 U/L (10-37); INR 1.1 (0.80-1.20); PROTHROMBIN TIME 11.4 SECS (9.5-12.5)
[2018-05-02 20:26] LABS: POTASSIUM 2.9 mmol/L (3.5-5.1)
[2018-05-02 20:27] LABS: ALCOHOL, BLOOD < 3 mg/dL (<10)
[2018-05-02] MEDS ORDERED: POTASSIUM CHLORIDE 40 MEQ in NS 250 ML IV ONE (20:30)
[2018-05-02] MEDS ORDERED: DIPHENHYDRAMINE INJ 50 MG/ML VIAL IVP ONE (21:00)
[2018-05-02] MEDS ORDERED: POTASSIUM CHLORIDE 20 MEQ in NS 250 ML IV ONE ×4 (21:15)
[2018-05-02 21:23] LABS: BILIRUBIN,URINE NEGATIVE (NEGATIVE); BLOOD, URINE NEGATIVE (NEGATIVE); CLARITY/URINE CLEAR (CLEAR); COLOR,URINE YELLOW (YELLOW); GLUCOSE,URINE NEGATIVE (NEGATIVE); KETONES,URINE NEGATIVE (NEGATIVE); LEUKOCYTE ESTERASE ,URINE NEGATIVE (NEGATIVE); NITRITE, URINE NEGATIVE (NEGATIVE); PROTEIN URINE TRACE (NEGATIVE); UROBILINOGEN,URINE 0.2 (0.2-1.0)
[2018-05-02] MEDS ORDERED: KCL 20 mEq in 100 mL (PREMIX) 200 ML IV ONE (21:36)
[2018-05-02 21:50] LABS: BARBITURATE, URINE NEGATIVE (NEG <=200); BENZODIAZEPINE, URINE POSITIVE (NEG <=150); CANNABINOID, URINE NEGATIVE (NEG <=50); COCAINE, URINE NEGATIVE (NEG <=150); METHAMPHETAMINES SCREEN,URINE NEGATIVE (NEG <=500); OPIATE, URINE NEGATIVE (NEG <=100); PHENCYCLIDINE SCREEN,URINE NEGATIVE (NEG <=25); UR TRICYCLIC ANTIDEPRESSANTS NEGATIVE (NEG <=300); URINE AMPHETAMINE NEGATIVE (NEG <=500); URINE METHADONE NEGATIVE (NEG <=200); URINE OXYCODONE SCREEN NEGATIVE (NEG <=100); URINE PROPOXYPHENE SCREEN NEGATIVE (NEG <=300)
[2018-05-02 21:58] LABS: BACTERIA,URINE FEW /HPF (None Seen); COARSE GRANULAR CASTS,URINE 0-10 /LPF (None Seen); MUCUS,URINE 1+ /LPF (None Seen); RBC,URINE 0-3 /HPF (0-3); WBC,URINE 0-3 /HPF (0-3)
[2018-05-02] MEDS ORDERED: HALOPERIDOL LACTATE 5 MG/ML VIAL IVP ONE (22:00)
[2018-05-02] MEDS ORDERED: INSULIN REGULAR, HUMAN 100 UNITS/ML, 10 ML VIAL (novoLIN R) SUBCUT PRN (22:30)
[2018-05-02 23:05] VITALS: BP_SYST 123
[2018-05-02] MEDS: D5NS 1,000 ML IV SCH (23:47)
[2018-05-03 00:36] VITALS: BP_SYST 123
[2018-05-03] MEDS: LORazepam 2 MG/ML VIAL IVP PRN ×3 (01:29→23:22)
[2018-05-03 02:40] VITALS: BP_SYST 130
[2018-05-03 07:52] LABS: BASOPHILS % (AUTO) 0.7 % (0.0-2.0); EOSINOPHILS % (AUTO) 0.8 % (0.0-4.0); HEMATOCRIT 27.7 % (36-54); HEMOGLOBIN 9.4 g/dL (14.0-18.0); LYMPHOCYTES # (AUTO) 1.2 K/uL (1.0-5.5); LYMPHOCYTES % (AUTO) 21.6 % (20.5-51.5); MEAN CORPUSCULAR HEMOGLOBIN 30 pg (27-31); MEAN CORPUSCULAR HGB CONC 34 % (32-36); MEAN CORPUSCULAR VOLUME 88 fL (79.0-98.0); MONOCYTES # (AUTO) 0.4 K/uL (0.0-1.0); MONOCYTES % (AUTO) 7.2 % (1.7-9.3); NEUTROPHILS # (AUTO) 3.9 K/uL (1.8-7.7); RED BLOOD CELL COUNT(AUTO) 3.14 MIL/uL (4.2-6.2); RED CELL DISTRIBUTION WIDTH 15.8 % (9.0-15.0); WHITE BLOOD COUNT (AUTO) 5.5 K/uL (4.8-10.8)
[2018-05-03 07:53] LABS: CALCIUM 8.2 mg/dL (8.4-11.0); CREATININE 0.89 mg/dL (0.55-1.30)
[2018-05-03 07:58] LABS: ALBUMIN 2.3 g/dL (3.4-4.8); TOTAL BILIRUBIN 1.6 mg/dL (0.0-1.0)
[2018-05-03 08:00] VITALS: BP_SYST 119
[2018-05-03 08:15] LABS: PLATELET COUNT (AUTO) 45 K/uL (130-430)
[2018-05-03] MEDS ORDERED: LACTULOSE 20 GM/30 ML UDC PO ONE (09:45)
[2018-05-03 10:04] LABS: NEUTROPHILS % (AUTO) 69.7 % (40.0-70.0)
[2018-05-03 11:37] VITALS: BP_SYST 119
[2018-05-03] MEDS: D5NS 1,000 ML IV SCH ×2 (11:50→20:34)
[2018-05-03] MEDS: BANANA BAG 1 EA, FOLIC ACID 1 MG, THIAMINE HCL 100 MG, MAGNESIUM SULFATE 1 GM, MVI 10 M... IV SCH ×5 (12:53)
[2018-05-03] MEDS ORDERED: BALSAM PERU/CASTOR OIL 60 GM OINT...G. TP ONE (15:30)
[2018-05-03 16:33] VITALS: BP_SYST 133
[2018-05-03] MEDS: LACTULOSE 20 GM/30 ML UDC PO SCH ×3 (16:43→21:55)
[2018-05-03 20:40] VITALS: BP_SYST 130
[2018-05-03] MEDS: MORPHINE 4 MG/ML INJ. SYRINGE IVP PRN (21:56)
[2018-05-04 00:31] VITALS: BP_SYST 121
[2018-05-04] MEDS: D5NS 1,000 ML IV SCH ×5 (01:10→22:10)
[2018-05-04] MEDS: MORPHINE 4 MG/ML INJ. SYRINGE IVP PRN ×5 (03:37→21:41)
[2018-05-04 08:00] VITALS: BP_SYST 120
[2018-05-04] MEDS: BALSAM PERU/CASTOR OIL 60 GM OINT...G. TP SCH (09:00)
[2018-05-04] MEDS: LACTULOSE 20 GM/30 ML UDC PO SCH ×3 (09:00→22:00)
[2018-05-04] MEDS: LORazepam 2 MG/ML VIAL IVP PRN (09:04)
[2018-05-04] MEDS: BANANA BAG 1 EA, FOLIC ACID 1 MG, THIAMINE HCL 100 MG, MAGNESIUM SULFATE 1 GM, MVI 10 M... IV SCH ×5 (11:10)
[2018-05-04] MEDS ORDERED: traMADol HCL HCL 50 MG TABLET (ULTRAM) PO PRN (11:30)
[2018-05-04 12:15] VITALS: BP_SYST 125
[2018-05-04] MEDS: GABAPENTIN 400 MG CAPSULE PO SCH ×3 (12:46→22:00)
[2018-05-04 15:45] LABS: EOSINOPHILS # (AUTO) 0.1 K/uL (0.0-0.4); EOSINOPHILS % (AUTO) 2.7 % (0.0-4.0); HEMOGLOBIN 8.6 g/dL (14.0-18.0); LYMPHOCYTES # (AUTO) 0.9 K/uL (1.0-5.5); LYMPHOCYTES % (AUTO) 19.5 % (20.5-51.5); MEAN CORPUSCULAR HEMOGLOBIN 31 pg (27-31); MEAN CORPUSCULAR HGB CONC 35 % (32-36); MEAN CORPUSCULAR VOLUME 89 fL (79.0-98.0); MONOCYTES # (AUTO) 0.3 K/uL (0.0-1.0); MONOCYTES % (AUTO) 5.6 % (1.7-9.3); NEUTROPHILS # (AUTO) 3.4 K/uL (1.8-7.7); NEUTROPHILS % (AUTO) 71.2 % (40.0-70.0); RED BLOOD CELL COUNT(AUTO) 2.82 MIL/uL (4.2-6.2); RED CELL DISTRIBUTION WIDTH 16.3 % (9.0-15.0)
[2018-05-04 15:52] LABS: CALCIUM 7.4 mg/dL (8.4-11.0); CREATININE 0.83 mg/dL (0.55-1.30); PLATELET COUNT (AUTO) 35 K/uL (130-430)
[2018-05-04 15:56] LABS: POTASSIUM 2.8 mmol/L (3.5-5.1)
[2018-05-04 16:08] LABS: ALBUMIN 2.1 g/dL (3.4-4.8); THYROID STIMULATING HORMONE 2.18 uIu/mL (0.34-4.82); TOTAL BILIRUBIN 0.9 mg/dL (0.0-1.0)
[2018-05-04 16:26] VITALS: BP_SYST 116
[2018-05-04 16:26] LABS: WHITE BLOOD COUNT (AUTO) 4.7 K/uL (4.8-10.8)
[2018-05-04] MEDS ORDERED: POTASSIUM CHLORIDE 20 MEQ TAB.PRT.SR PO ONE (16:30)
[2018-05-04 19:00] VITALS: BP_SYST 116
[2018-05-04 20:00] VITALS: BP_SYST 116
[2018-05-04] MEDS ORDERED: traZODone HCL 50 MG TABLET (DESYREL) PO SCH (21:00)
[2018-05-04] MEDS: PANTOPRAZOLE SODIUM 40 MG TAB PO SCH (22:00)
[2018-05-04] MEDS ORDERED: traZODone HCL 50 MG TABLET (DESYREL) ONE (22:13)
[2018-05-04] MEDS: traZODone HCL 50 MG TABLET (DESYREL) PO SCH (22:25)
[2018-05-05] MEDS: MORPHINE 4 MG/ML INJ. SYRINGE IVP PRN ×4 (01:35→22:17)
[2018-05-05] MEDS: LORazepam 2 MG/ML VIAL IVP PRN ×3 (02:22→23:37)
[2018-05-05 02:37] VITALS: BP_SYST 121
[2018-05-05] MEDS: LACTULOSE 20 GM/30 ML UDC PO SCH ×3 (08:49→21:47)
[2018-05-05] MEDS: clonazePAM 0.5 MG TABLET PO SCH (08:50)
[2018-05-05] MEDS: GABAPENTIN 400 MG CAPSULE PO SCH ×4 (08:50→21:48)
[2018-05-05] MEDS: PANTOPRAZOLE SODIUM 40 MG TAB PO SCH ×2 (08:50→21:47)
[2018-05-05] MEDS: D5NS 1,000 ML IV SCH ×2 (08:51→22:17)
[2018-05-05 08:58] VITALS: BP_SYST 126
[2018-05-05] MEDS: BALSAM PERU/CASTOR OIL 60 GM OINT...G. TP SCH (09:00)
[2018-05-05] MEDS: BANANA BAG 1 EA, FOLIC ACID 1 MG, THIAMINE HCL 100 MG, MAGNESIUM SULFATE 1 GM, MVI 10 M... IV SCH ×5 (09:52)
[2018-05-05 12:31] VITALS: BP_SYST 113
[2018-05-05 16:27] VITALS: BP_SYST 115
[2018-05-05 19:55] VITALS: BP_SYST 119
[2018-05-05] MEDS: traZODone HCL 50 MG TABLET (DESYREL) PO SCH (21:47)
[2018-05-06 00:12] VITALS: BP_SYST 120
[2018-05-06] MEDS: MORPHINE 4 MG/ML INJ. SYRINGE IVP PRN ×4 (02:38→15:24)
[2018-05-06] MEDS: BALSAM PERU/CASTOR OIL 60 GM OINT...G. TP SCH (06:15)
[2018-05-06 08:16] VITALS: BP_SYST 123
[2018-05-06] MEDS: LACTULOSE 20 GM/30 ML UDC PO SCH ×2 (08:17→14:45)
[2018-05-06] MEDS: clonazePAM 0.5 MG TABLET PO SCH (08:18)
[2018-05-06] MEDS: GABAPENTIN 400 MG CAPSULE PO SCH ×2 (08:18→12:37)
[2018-05-06] MEDS: PANTOPRAZOLE SODIUM 40 MG TAB PO SCH (08:18)
[2018-05-06] MEDS: D5NS 1,000 ML IV SCH (08:18)
[2018-05-06] MEDS: BANANA BAG 1 EA, FOLIC ACID 1 MG, THIAMINE HCL 100 MG, MAGNESIUM SULFATE 1 GM, MVI 10 M... IV SCH ×5 (09:02)
[2018-05-06] MEDS: LORazepam 2 MG/ML VIAL IVP PRN (10:28)
[2018-05-06] MEDS ORDERED: ERTAPENEM SODIUM 1 GM in NS 50 ML IV SCH (11:30)
[2018-05-06] MEDS ORDERED: COMMUNICATION ORDER XX ONE (11:30)
[2018-05-06 11:37] VITALS: BP_SYST 116
[2018-05-06 12:20] LABS: HEMATOCRIT 23.4 % (36-54); HEMOGLOBIN 7.8 g/dL (14.0-18.0); MEAN CORPUSCULAR HEMOGLOBIN 30 pg (27-31); MEAN CORPUSCULAR HGB CONC 33 % (32-36); MEAN CORPUSCULAR VOLUME 91 fL (79.0-98.0); RED BLOOD CELL COUNT(AUTO) 2.56 MIL/uL (4.2-6.2); WHITE BLOOD COUNT (AUTO) 3.2 K/uL (4.8-10.8)
[2018-05-06 12:21] LABS: PLATELET COUNT (AUTO) 37 K/uL (130-430)
[2018-05-06 12:30] LABS: CALCIUM 7.9 mg/dL (8.4-11.0); CREATININE 0.88 mg/dL (0.55-1.30)
[2018-05-06 12:35] LABS: ALBUMIN 1.9 g/dL (3.4-4.8); TOTAL BILIRUBIN 0.8 mg/dL (0.0-1.0)
[2018-05-06] MEDS ORDERED: POTASSIUM CHLORIDE 20 MEQ TAB.PRT.SR PO ONE ×2 (13:00→13:30)
[2018-05-06 13:11] LABS: ATYPICAL LYMPHOCYTES % 0 % (0-0); BAND % (MANUAL) 0 % (0-6); LYMPHOCYTES % (MANUAL) 32 % (20-46)
[2018-05-06 13:12] LABS: BASOPHILS % (MANUAL) 0 % (0-2); EOSINOPHILS % (MANUAL) 2 % (0-7); MONOCYTES % (MANUAL) 4 % (0-11)
[2018-05-06 14:41] VITALS: BP_SYST 133
[2018-05-06 16:42] VITALS: BP_SYST 155
== END 2018-05-06 16:32 | disposition home health service (06) | DRG 540 ==
LOC: SED 19:37 → STU 22:19
PROVIDERS: ADMIT Internal Medicine Hospice and Palliative Medicine; ATTEND Internal Medicine Hospice and Palliative Medicine
DX: M86.171 Other acute osteomyelitis, right ankle and foot (principal); L97.429 Non-pressure chronic ulcer of left heel and midfoot with unspecified severity; L97.419 Non-pressure chronic ulcer of right heel and midfoot with unspecified severity; F41.1 Generalized anxiety disorder; G40.909 Epilepsy, unspecified, not intractable, without status epilepticus; I10 Essential (primary) hypertension; K74.60 Unspecified cirrhosis of liver; E87.6 Hypokalemia; F10.10 Alcohol abuse, uncomplicated; Y90.9 Presence of alcohol in blood, level not specified; F32.9 Major depressive disorder, single episode, unspecified; G47.00 Insomnia, unspecified; M14.679 Charcot's joint, unspecified ankle and foot; Z85.819 Personal history of malignant neoplasm of unspecified site of lip, oral cavity, and pharynx; Z91.19 Patient's noncompliance with other medical treatment and regimen; Z79.899 Other long term (current) drug therapy; Z80.8 Family history of malignant neoplasm of other organs or systems; Z82.49 Family history of ischemic heart disease and other diseases of the circulatory system
CPT/HCPCS: 36415; 70450-TC; 71045; 80053; 80307; 81000-TC; 82140-TC; 82962; 83690-TC; 84443-TC; 84484; 85007; 85025; 85027; 85610-TC; 85730-TC; 87081; 93005; 96365; 96375; 96376; 99285; G0378; G0481; G0482; J1200; J1335; J1630; J2060; J2270; J2405; J3411; J3475; J3480; J3490; J7030; J7042; J7050

== ENCOUNTER 2018-05-12 01:36 | Inpatient (IN) | payer OTHER ==
[~2018-05-12] VITALS: Ht 205.7 cm; Wt 90.7 kg
[2018-05-12] VITALS (8 sets, daily range): BP systolic 109–157
[~2018-05-12 01:36] MED LIST changes: -CEPHALEXIN; -HYDR-3924 PO; -NITR-85 PO; -SOM350 PO
[2018-05-12] MEDS ORDERED: NACL 0.9% 1,000 ML IV ONE (01:59)
[2018-05-12] MEDS ORDERED: MORPHINE 4 MG/ML INJ. SYRINGE IVP ONE ×2 (02:00→03:15)
[2018-05-12] MEDS ORDERED: ONDANSETRON HCL 4 MG/2 ML VIAL IVP ONE (02:00)
[2018-05-12] MEDS ORDERED: PANTOPRAZOLE SODIUM 40 MG TAB PO ONE (02:15)
[2018-05-12 02:25] LABS: BASOPHILS # (AUTO) 0.1 K/uL (0.0-0.2); BASOPHILS % (AUTO) 1.3 % (0.0-2.0); EOSINOPHILS % (AUTO) 0.8 % (0.0-4.0); HEMATOCRIT 29.2 % (36-54); HEMOGLOBIN 9.9 g/dL (14.0-18.0); LYMPHOCYTES # (AUTO) 1.3 K/uL (1.0-5.5); LYMPHOCYTES % (AUTO) 22.5 % (20.5-51.5); MEAN CORPUSCULAR HEMOGLOBIN 30 pg (27-31); MEAN CORPUSCULAR HGB CONC 34 % (32-36); MEAN CORPUSCULAR VOLUME 90 fL (79.0-98.0); MONOCYTES # (AUTO) 0.6 K/uL (0.0-1.0); MONOCYTES % (AUTO) 10.1 % (1.7-9.3); NEUTROPHILS # (AUTO) 3.7 K/uL (1.8-7.7); NEUTROPHILS % (AUTO) 65.3 % (40.0-70.0); PLATELET COUNT (AUTO) 137 K/uL (130-430); RED BLOOD CELL COUNT(AUTO) 3.26 MIL/uL (4.2-6.2); RED CELL DISTRIBUTION WIDTH 17.4 % (9.0-15.0); WHITE BLOOD COUNT (AUTO) 5.7 K/uL (4.8-10.8)
[2018-05-12] MEDS ORDERED: FOLIC ACID 1 MG, THIAMINE HCL 100 MG, MAGNESIUM SULFATE 1 GM, MVI 10 ML in NACL 0.9% 1,... IV ONE (02:30)
[2018-05-12] MEDS ORDERED: FOLIC ACID 5 MG/ML VIAL IV ONE (02:37)
[2018-05-12] MEDS ORDERED: MAGNESIUM SULFATE 1 GM/2 ML VIAL ONE (02:37)
[2018-05-12] MEDS ORDERED: MVI 10 ML VIAL IV ONE (02:37)
[2018-05-12 02:53] LABS: CALCIUM 7.9 mg/dL (8.4-11.0); CREATININE 0.86 mg/dL (0.55-1.30)
[2018-05-12 02:54] LABS: INR 1.1 (0.80-1.20); PROTHROMBIN TIME 10.8 SECS (9.5-12.5)
[2018-05-12 02:57] LABS: ALBUMIN 2.6 g/dL (3.4-4.8); TOTAL BILIRUBIN 1.5 mg/dL (0.0-1.0)
[2018-05-12 02:59] LABS: POTASSIUM 2.5 mmol/L (3.5-5.1)
[2018-05-12] MEDS ORDERED: POTASSIUM CHLORIDE 20 MEQ TAB.PRT.SR PO ONE ×2 (03:15→03:30)
[2018-05-12 03:42] LABS: BILIRUBIN,URINE NEGATIVE (NEGATIVE); BLOOD, URINE 2+ (NEGATIVE); CLARITY/URINE CLEAR (CLEAR); COLOR,URINE YELLOW (YELLOW); GLUCOSE,URINE NEGATIVE (NEGATIVE); KETONES,URINE NEGATIVE (NEGATIVE); LEUKOCYTE ESTERASE ,URINE NEGATIVE (NEGATIVE); NITRITE, URINE NEGATIVE (NEGATIVE); PH,URINE 6.5 (5.0-8.0); PROTEIN URINE NEGATIVE (NEGATIVE); UROBILINOGEN,URINE 0.2 (0.2-1.0)
[2018-05-12] MEDS ORDERED: LACTULOSE 20 GM/30 ML UDC PO ONE (03:45)
[2018-05-12 03:58] LABS: BACTERIA,URINE FEW /HPF (None Seen); WBC,URINE 0-3 /HPF (0-3)
[2018-05-12 04:01] LABS: BARBITURATE, URINE NEGATIVE (NEG <=200); BENZODIAZEPINE, URINE POSITIVE (NEG <=150); CANNABINOID, URINE NEGATIVE (NEG <=50); COCAINE, URINE NEGATIVE (NEG <=150); METHAMPHETAMINES SCREEN,URINE NEGATIVE (NEG <=500); OPIATE, URINE POSITIVE (NEG <=100); PHENCYCLIDINE SCREEN,URINE NEGATIVE (NEG <=25); UR TRICYCLIC ANTIDEPRESSANTS NEGATIVE (NEG <=300); URINE AMPHETAMINE NEGATIVE (NEG <=500); URINE METHADONE NEGATIVE (NEG <=200); URINE OXYCODONE SCREEN NEGATIVE (NEG <=100); URINE PROPOXYPHENE SCREEN NEGATIVE (NEG <=300)
[2018-05-12] MEDS ORDERED: ONDANSETRON HCL 4 MG/2 ML VIAL IVP PRN (05:30)
[2018-05-12] MEDS ORDERED: ALBUTEROL SULFATE 0.083% 2.5 MG/3 ML VIAL.NEB INH PRN (05:30)
[2018-05-12] MEDS: MORPHINE 4 MG/ML INJ. SYRINGE IVP PRN ×5 (06:17→23:42)
[2018-05-12 07:04] LABS: BASOPHILS # (AUTO) 0.1 K/uL (0.0-0.2); BASOPHILS % (AUTO) 1.2 % (0.0-2.0); EOSINOPHILS # (AUTO) 0.1 K/uL (0.0-0.4); EOSINOPHILS % (AUTO) 1.6 % (0.0-4.0); HEMOGLOBIN 8.8 g/dL (14.0-18.0); LYMPHOCYTES # (AUTO) 1.2 K/uL (1.0-5.5); LYMPHOCYTES % (AUTO) 24.7 % (20.5-51.5); MEAN CORPUSCULAR HEMOGLOBIN 30 pg (27-31); MEAN CORPUSCULAR HGB CONC 34 % (32-36); MEAN CORPUSCULAR VOLUME 90 fL (79.0-98.0); MONOCYTES # (AUTO) 0.6 K/uL (0.0-1.0); MONOCYTES % (AUTO) 12.1 % (1.7-9.3); NEUTROPHILS # (AUTO) 2.9 K/uL (1.8-7.7); NEUTROPHILS % (AUTO) 60.4 % (40.0-70.0); PLATELET COUNT (AUTO) 101 K/uL (130-430); RED BLOOD CELL COUNT(AUTO) 2.89 MIL/uL (4.2-6.2); RED CELL DISTRIBUTION WIDTH 17.2 % (9.0-15.0); WHITE BLOOD COUNT (AUTO) 4.9 K/uL (4.8-10.8)
[2018-05-12 07:08] LABS: CALCIUM 7.4 mg/dL (8.4-11.0); CREATININE 0.75 mg/dL (0.55-1.30)
[2018-05-12 07:17] LABS: ALBUMIN 2.1 g/dL (3.4-4.8)
[2018-05-12] MEDS: GABAPENTIN 400 MG CAPSULE PO SCH ×4 (08:47→21:00)
[2018-05-12] MEDS: PANTOPRAZOLE SODIUM 40 MG/VIAL (PROTONIX) IVP SCH ×2 (08:47→21:01)
[2018-05-12] MEDS: clonazePAM 0.5 MG TABLET PO SCH (08:47)
[2018-05-12] MEDS: FOLIC ACID 1 MG, THIAMINE HCL 100 MG, MAGNESIUM SULFATE 1 GM, MVI 10 ML in NACL 0.9% 1,... IV SCH (08:48)
[2018-05-12] MEDS ORDERED: METOCLOPRAMIDE HCL 10 MG/2 ML VIAL IVP PRN (09:30)
[2018-05-12] MEDS: cefTRIAXone 1 GM in D5W 50 ML IV SCH (12:25)
[2018-05-12 13:58] LABS: BASOPHILS # (AUTO) 0.1 K/uL (0.0-0.2); BASOPHILS % (AUTO) 1.5 % (0.0-2.0); EOSINOPHILS # (AUTO) 0.1 K/uL (0.0-0.4); EOSINOPHILS % (AUTO) 1.9 % (0.0-4.0); HEMATOCRIT 29.1 % (36-54); HEMOGLOBIN 9.6 g/dL (14.0-18.0); LYMPHOCYTES # (AUTO) 1.5 K/uL (1.0-5.5); LYMPHOCYTES % (AUTO) 28.5 % (20.5-51.5); MEAN CORPUSCULAR HEMOGLOBIN 30 pg (27-31); MEAN CORPUSCULAR HGB CONC 33 % (32-36); MONOCYTES # (AUTO) 0.6 K/uL (0.0-1.0); MONOCYTES % (AUTO) 11.7 % (1.7-9.3); NEUTROPHILS # (AUTO) 2.8 K/uL (1.8-7.7); NEUTROPHILS % (AUTO) 56.4 % (40.0-70.0); RED BLOOD CELL COUNT(AUTO) 3.18 MIL/uL (4.2-6.2); RED CELL DISTRIBUTION WIDTH 17.7 % (9.0-15.0); WHITE BLOOD COUNT (AUTO) 5.1 K/uL (4.8-10.8)
[2018-05-12 14:08] LABS: MEAN CORPUSCULAR VOLUME 92 fL (79.0-98.0); PLATELET COUNT (AUTO) 90 K/uL (130-430)
[2018-05-12] MEDS: traZODone HCL 50 MG TABLET (DESYREL) PO SCH (21:00)
[2018-05-13] MEDS: LORazepam 2 MG/ML VIAL IVP PRN ×4 (00:59→20:10)
[2018-05-13] MEDS: MORPHINE 4 MG/ML INJ. SYRINGE IVP PRN ×2 (04:02→08:16)
[2018-05-13 07:20] LABS: BASOPHILS # (AUTO) 0.1 K/uL (0.0-0.2); BASOPHILS % (AUTO) 1.7 % (0.0-2.0); EOSINOPHILS # (AUTO) 0.1 K/uL (0.0-0.4); EOSINOPHILS % (AUTO) 3.1 % (0.0-4.0); HEMATOCRIT 28.4 % (36-54); HEMOGLOBIN 9.1 g/dL (14.0-18.0); LYMPHOCYTES # (AUTO) 1.1 K/uL (1.0-5.5); LYMPHOCYTES % (AUTO) 36.2 % (20.5-51.5); MEAN CORPUSCULAR HEMOGLOBIN 30 pg (27-31); MEAN CORPUSCULAR HGB CONC 32 % (32-36); MEAN CORPUSCULAR VOLUME 93 fL (79.0-98.0); MONOCYTES # (AUTO) 0.2 K/uL (0.0-1.0); MONOCYTES % (AUTO) 6.5 % (1.7-9.3); NEUTROPHILS # (AUTO) 1.6 K/uL (1.8-7.7); NEUTROPHILS % (AUTO) 52.5 % (40.0-70.0); PLATELET COUNT (AUTO) 75 K/uL (130-430); RED BLOOD CELL COUNT(AUTO) 3.07 MIL/uL (4.2-6.2); RED CELL DISTRIBUTION WIDTH 17.3 % (9.0-15.0); WHITE BLOOD COUNT (AUTO) 3.1 K/uL (4.8-10.8)
[2018-05-13 07:49] LABS: ALBUMIN 2.3 g/dL (3.4-4.8); CALCIUM 8.1 mg/dL (8.4-11.0); CREATININE 0.73 mg/dL (0.55-1.30)
[2018-05-13 08:00] VITALS: BP_SYST 122
[2018-05-13 08:03] LABS: POTASSIUM 2.9 mmol/L (3.5-5.1)
[2018-05-13] MEDS: PANTOPRAZOLE SODIUM 40 MG/VIAL (PROTONIX) IVP SCH ×2 (08:17→20:10)
[2018-05-13] MEDS: GABAPENTIN 400 MG CAPSULE PO SCH ×4 (08:18→20:10)
[2018-05-13] MEDS: clonazePAM 0.5 MG TABLET PO SCH (08:19)
[2018-05-13] MEDS: FOLIC ACID 1 MG, THIAMINE HCL 100 MG, MAGNESIUM SULFATE 1 GM, MVI 10 ML in NACL 0.9% 1,... IV SCH (08:53)
[2018-05-13] MEDS: POTASSIUM CHLORIDE 20 MEQ/PKT PACKET PO SCH ×2 (11:45→15:31)
[2018-05-13] MEDS: cefTRIAXone 1 GM in D5W 50 ML IV SCH (11:45)
[2018-05-13 12:38] VITALS: BP_SYST 104
[2018-05-13 16:34] VITALS: BP_SYST 112
[2018-05-13 20:00] VITALS: BP_SYST 113
[2018-05-13] MEDS: traZODone HCL 50 MG TABLET (DESYREL) PO SCH (20:10)
[2018-05-13 23:57] VITALS: BP_SYST 115
[2018-05-14] MEDS: MORPHINE 4 MG/ML INJ. SYRINGE IVP PRN ×5 (02:21→22:44)
[2018-05-14] MEDS: LORazepam 2 MG/ML VIAL IVP PRN ×4 (04:01→20:06)
[2018-05-14 07:13] LABS: BASOPHILS # (AUTO) 0.1 K/uL (0.0-0.2); EOSINOPHILS # (AUTO) 0.1 K/uL (0.0-0.4); EOSINOPHILS % (AUTO) 3.9 % (0.0-4.0); HEMATOCRIT 23.6 % (36-54); HEMOGLOBIN 7.8 g/dL (14.0-18.0); LYMPHOCYTES # (AUTO) 0.9 K/uL (1.0-5.5); LYMPHOCYTES % (AUTO) 34.1 % (20.5-51.5); MEAN CORPUSCULAR HEMOGLOBIN 30 pg (27-31); MEAN CORPUSCULAR HGB CONC 33 % (32-36); MEAN CORPUSCULAR VOLUME 91 fL (79.0-98.0); MONOCYTES # (AUTO) 0.2 K/uL (0.0-1.0); MONOCYTES % (AUTO) 6.2 % (1.7-9.3); NEUTROPHILS # (AUTO) 1.4 K/uL (1.8-7.7); PLATELET COUNT (AUTO) 58 K/uL (130-430); RED BLOOD CELL COUNT(AUTO) 2.59 MIL/uL (4.2-6.2); RED CELL DISTRIBUTION WIDTH 17.1 % (9.0-15.0); WHITE BLOOD COUNT (AUTO) 2.7 K/uL (4.8-10.8)
[2018-05-14 07:29] LABS: INR 1.1 (0.80-1.20); PROTHROMBIN TIME 11.1 SECS (9.5-12.5)
[2018-05-14 07:30] VITALS: BP_SYST 120
[2018-05-14 07:32] LABS: CALCIUM 7.8 mg/dL (8.4-11.0); CREATININE 0.73 mg/dL (0.55-1.30); POTASSIUM 3.8 mmol/L (3.5-5.1)
[2018-05-14 07:44] LABS: ALBUMIN 1.9 g/dL (3.4-4.8); TOTAL BILIRUBIN 0.8 mg/dL (0.0-1.0)
[2018-05-14] MEDS: PANTOPRAZOLE SODIUM 40 MG/VIAL (PROTONIX) IVP SCH ×2 (08:06→20:06)
[2018-05-14] MEDS: FOLIC ACID 1 MG, THIAMINE HCL 100 MG, MAGNESIUM SULFATE 1 GM, MVI 10 ML in NACL 0.9% 1,... IV SCH (08:11)
[2018-05-14] MEDS: GABAPENTIN 400 MG CAPSULE PO SCH ×4 (09:00→20:07)
[2018-05-14] MEDS: clonazePAM 0.5 MG TABLET PO SCH (09:00)
[2018-05-14 09:37] LABS: NEUTROPHILS % (AUTO) 53.8 % (40.0-70.0)
[2018-05-14 12:32] VITALS: BP_SYST 118
[2018-05-14] MEDS ORDERED: SIMETHICONE 40 MG/0.6 ML ML ONE (15:02)
[2018-05-14] MEDS: MIDAZOLAM HCL 5 MG/5 ML VIAL ONE ×2 (15:08→15:12)
[2018-05-14] MEDS: fentaNYL CITRATE/PF 100 MCG/2 ML AMP ONE ×2 (15:08→15:12)
[2018-05-14] MEDS ORDERED: DIPHENHYDRAMINE INJ 50 MG/ML VIAL ONE (15:40)
[2018-05-14 16:55] VITALS: BP_SYST 108
[2018-05-14 20:00] VITALS: BP_SYST 108
[2018-05-14] MEDS: traZODone HCL 50 MG TABLET (DESYREL) PO SCH (20:06)
[2018-05-15] MEDS: LORazepam 2 MG/ML VIAL IVP PRN ×4 (00:06→22:28)
[2018-05-15 01:11] VITALS: BP_SYST 111
[2018-05-15] MEDS: MORPHINE 4 MG/ML INJ. SYRINGE IVP PRN ×3 (03:33→12:54)
[2018-05-15 08:00] VITALS: BP_SYST 111
[2018-05-15] MEDS: FOLIC ACID 1 MG, THIAMINE HCL 100 MG, MAGNESIUM SULFATE 1 GM, MVI 10 ML in NACL 0.9% 1,... IV SCH (08:25)
[2018-05-15] MEDS: GABAPENTIN 400 MG CAPSULE PO SCH ×4 (08:25→22:28)
[2018-05-15] MEDS: clonazePAM 0.5 MG TABLET PO SCH (08:26)
[2018-05-15] MEDS: PANTOPRAZOLE SODIUM 40 MG/VIAL (PROTONIX) IVP SCH ×2 (08:26→22:27)
[2018-05-15 12:15] VITALS: BP_SYST 111
[2018-05-15] MEDS ORDERED: BALSAM PERU/CASTOR OIL 60 GM OINT...G. TP ONE (14:30)
[2018-05-15 15:11] LABS: HEMOGLOBIN 7.8 g/dL (14.0-18.0); RED CELL DISTRIBUTION WIDTH 17.3 % (9.0-15.0); WHITE BLOOD COUNT (AUTO) 3.3 K/uL (4.8-10.8)
[2018-05-15 15:26] LABS: MEAN CORPUSCULAR HGB CONC 33 % (32-36); MEAN CORPUSCULAR VOLUME 92 fL (79.0-98.0)
[2018-05-15 16:19] VITALS: BP_SYST 116
[2018-05-15 16:20] VITALS: BP_SYST 116
[2018-05-15 16:24] LABS: HEMATOCRIT 23.8 % (36-54); MEAN CORPUSCULAR HEMOGLOBIN 30 pg (27-31); PLATELET COUNT (AUTO) 59 K/uL (130-430); RED BLOOD CELL COUNT(AUTO) 2.59 MIL/uL (4.2-6.2)
[2018-05-15 17:10] LABS: BAND % (MANUAL) 2 % (0-6); BASOPHILS % (MANUAL) 0 % (0-2); EOSINOPHILS % (MANUAL) 4 % (0-7); LYMPHOCYTES % (MANUAL) 18 % (20-46); MONOCYTES % (MANUAL) 3 % (0-11)
[2018-05-15 20:47] VITALS: BP_SYST 123
[2018-05-15] MEDS: traZODone HCL 50 MG TABLET (DESYREL) PO SCH (22:28)
[2018-05-16 00:56] VITALS: BP_SYST 118
[2018-05-16] MEDS: LORazepam 2 MG/ML VIAL IVP PRN (02:29)
[2018-05-16 08:00] VITALS: BP_SYST 116
[2018-05-16] MEDS: GABAPENTIN 400 MG CAPSULE PO SCH (08:18)
[2018-05-16] MEDS: PANTOPRAZOLE SODIUM 40 MG/VIAL (PROTONIX) IVP SCH (08:18)
[2018-05-16] MEDS: FOLIC ACID 1 MG, THIAMINE HCL 100 MG, MAGNESIUM SULFATE 1 GM, MVI 10 ML in NACL 0.9% 1,... IV SCH (08:18)
[2018-05-16] MEDS: clonazePAM 0.5 MG TABLET PO SCH (08:18)
[2018-05-16] MEDS ORDERED: BALSAM PERU/CASTOR OIL 60 GM OINT...G. TP SCH (09:00)
[2018-05-16 10:17] VITALS: BP_SYST 124
[2018-05-16] MEDS ORDERED: MEPERIDINE HCL/PF 25 MG/ML DISP.SYRIN ONE (19:55)
== END 2018-05-16 13:50 | disposition home health service (06) | DRG 871 ==
LOC: SED 01:36 → STU 03:27 → SMU 05-13 08:41
PROVIDERS: ADMIT Internal Medicine; ATTEND Internal Medicine
PROC: 0DB68ZX Excision of Stomach, Via Natural or Artificial Opening Endoscopic, Diagnostic (ICD-10-PCS; principal; 2018-05-14 13:00)
DX: A41.9 Sepsis, unspecified organism (principal); K29.21 Alcoholic gastritis with bleeding; L97.829 Non-pressure chronic ulcer of other part of left lower leg with unspecified severity; L97.819 Non-pressure chronic ulcer of other part of right lower leg with unspecified severity; D62 Acute posthemorrhagic anemia; M86.8X8 Other osteomyelitis, other site; E87.6 Hypokalemia; B18.2 Chronic viral hepatitis C; M14.672 Charcot's joint, left ankle and foot; K70.10 Alcoholic hepatitis without ascites; D69.6 Thrombocytopenia, unspecified; Z66 Do not resuscitate; Z51.5 Encounter for palliative care; D72.819 Decreased white blood cell count, unspecified; M14.671 Charcot's joint, right ankle and foot; I10 Essential (primary) hypertension; G62.9 Polyneuropathy, unspecified; F10.20 Alcohol dependence, uncomplicated; K20.9 Esophagitis, unspecified; K70.30 Alcoholic cirrhosis of liver without ascites; J44.9 Chronic obstructive pulmonary disease, unspecified; I25.10 Atherosclerotic heart disease of native coronary artery without angina pectoris; Z85.819 Personal history of malignant neoplasm of unspecified site of lip, oral cavity, and pharynx; Z79.899 Other long term (current) drug therapy; Z90.49 Acquired absence of other specified parts of digestive tract
CPT/HCPCS: 36415; 43239; 71045; 80053; 80307; 81000-TC; 82140-TC; 82150-TC; 82550-TC; 83605; 83690-TC; 83735-TC; 84484; 85007; 85025; 85027; 85610-TC; 85730-TC; 87040-TC; 87081; 88305; 88312; 88313; 93005; 96365; 96366; 96375; 96376; 99285; A6209; C9113; G0378; G0482; J0696; J1200; J2060; J2175; J2250; J2270; J2405; J3010; J3411; J3475; J3490; J7030; J7060

== ENCOUNTER 2018-05-26 14:56 | Inpatient (IN) | payer OTHER ==
[~2018-05-26] VITALS: Ht 205.7 cm; Wt 102.1 kg
[2018-05-26 15:06] VITALS: BP_SYST 110
[2018-05-26] MEDS ORDERED: NACL 0.9% 1,000 ML IV ONE (15:16)
[2018-05-26] MEDS ORDERED: ASPIRIN 81 MG TAB.CHEW PO ONE (15:30)
[2018-05-26] MEDS ORDERED: FOLIC ACID 1 MG, THIAMINE HCL 100 MG, MAGNESIUM SULFATE 1 GM, MVI 10 ML in NACL 0.9% 1,... IV ONE (15:30)
[2018-05-26 15:58] LABS: CALCIUM 7.5 mg/dL (8.4-11.0); CREATININE 0.82 mg/dL (0.55-1.30)
[2018-05-26 15:59] LABS: INR 1.1 (0.80-1.20); PROTHROMBIN TIME 10.9 SECS (9.5-12.5)
[2018-05-26 16:03] LABS: ALBUMIN 2.4 g/dL (3.4-4.8); TOTAL BILIRUBIN 1.5 mg/dL (0.0-1.0)
[2018-05-26 16:04] LABS: POTASSIUM 2.9 mmol/L (3.5-5.1)
[2018-05-26] MEDS ORDERED: POTASSIUM CHLORIDE 20 MEQ/PKT PACKET PO ONE (16:30)
[2018-05-26] MEDS ORDERED: KCL 40 mEq in 100 mL (PREMIX) 100 ML IV ONE (16:30)
[2018-05-26 16:43] LABS: BASOPHILS # (AUTO) 0.1 K/uL (0.0-0.2); BASOPHILS % (AUTO) 1.1 % (0.0-2.0); EOSINOPHILS # (AUTO) 0.1 K/uL (0.0-0.4); EOSINOPHILS % (AUTO) 1.3 % (0.0-4.0); HEMATOCRIT 28.7 % (36-54); HEMOGLOBIN 9.6 g/dL (14.0-18.0); LYMPHOCYTES # (AUTO) 1.4 K/uL (1.0-5.5); LYMPHOCYTES % (AUTO) 21.3 % (20.5-51.5); MEAN CORPUSCULAR HEMOGLOBIN 30 pg (27-31); MEAN CORPUSCULAR HGB CONC 34 % (32-36); MEAN CORPUSCULAR VOLUME 89 fL (79.0-98.0); MONOCYTES # (AUTO) 1.1 K/uL (0.0-1.0); MONOCYTES % (AUTO) 15.7 % (1.7-9.3); NEUTROPHILS # (AUTO) 4.1 K/uL (1.8-7.7); NEUTROPHILS % (AUTO) 60.6 % (40.0-70.0); PLATELET COUNT (AUTO) 103 K/uL (130-430); RED BLOOD CELL COUNT(AUTO) 3.23 MIL/uL (4.2-6.2); RED CELL DISTRIBUTION WIDTH 16.8 % (9.0-15.0); WHITE BLOOD COUNT (AUTO) 6.8 K/uL (4.8-10.8)
[2018-05-26] MEDS ORDERED: KCL 20 mEq in 100 mL (PREMIX) 200 ML IV ONE (17:02)
[2018-05-26] MEDS ORDERED: LORazepam 2 MG/ML VIAL IVP PRN (18:15)
[2018-05-26 19:27] VITALS: BP_SYST 133
[2018-05-26 20:00] VITALS: BP_SYST 144
[2018-05-26] MEDS: NACL 0.9% 1,000 ML IV SCH (22:17)
[2018-05-27] MEDS ORDERED: ALBUTEROL SULFATE 0.083% 2.5 MG/3 ML VIAL.NEB INH PRN
[2018-05-27] MEDS ORDERED: ONDANSETRON HCL 4 MG/2 ML VIAL IVP PRN
[2018-05-27] MEDS ORDERED: POTASSIUM CHLORIDE IV ONE (00:15)
[2018-05-27] MEDS ORDERED: NS IV ONE (00:15)
[2018-05-27 00:17] VITALS: BP_SYST 133
[2018-05-27] MEDS ORDERED: KCL 40 mEq in 100 mL (PREMIX) 100 ML IV ONE (00:31)
[2018-05-27] MEDS ORDERED: MORPHINE 4 MG/ML INJ. SYRINGE IVP PRN ×2 (03:15→03:45)
[2018-05-27] MEDS: NACL 0.9% 1,000 ML IV SCH (03:28)
[2018-05-27 03:35] LABS: BARBITURATE, URINE NEGATIVE (NEG <=200); BENZODIAZEPINE, URINE NEGATIVE (NEG <=150); BILIRUBIN,URINE NEGATIVE (NEGATIVE); BLOOD, URINE NEGATIVE (NEGATIVE); CANNABINOID, URINE NEGATIVE (NEG <=50); CLARITY/URINE CLEAR (CLEAR); COCAINE, URINE NEGATIVE (NEG <=150); COLOR,URINE YELLOW (YELLOW); GLUCOSE,URINE NEGATIVE (NEGATIVE); KETONES,URINE TRACE (NEGATIVE); LEUKOCYTE ESTERASE ,URINE NEGATIVE (NEGATIVE); METHAMPHETAMINES SCREEN,URINE NEGATIVE (NEG <=500); NITRITE, URINE NEGATIVE (NEGATIVE); OPIATE, URINE NEGATIVE (NEG <=100); PHENCYCLIDINE SCREEN,URINE NEGATIVE (NEG <=25); PROTEIN URINE NEGATIVE (NEGATIVE); UR TRICYCLIC ANTIDEPRESSANTS NEGATIVE (NEG <=300); URINE AMPHETAMINE NEGATIVE (NEG <=500); URINE METHADONE NEGATIVE (NEG <=200); URINE OXYCODONE SCREEN NEGATIVE (NEG <=100); URINE PROPOXYPHENE SCREEN NEGATIVE (NEG <=300)
[2018-05-27] MEDS ORDERED: GABAPENTIN 400 MG CAPSULE PO SCH (09:00)
[2018-05-27] MEDS ORDERED: PANTOPRAZOLE SODIUM 40 MG TAB PO SCH (09:00)
[2018-05-27] MEDS ORDERED: clonazePAM 0.5 MG TABLET PO SCH (09:00)
[2018-05-27] MEDS ORDERED: traZODone HCL 50 MG TABLET (DESYREL) PO SCH (21:00)
== END 2018-05-27 09:04 | disposition left against medical advice (07) | DRG 281 ==
LOC: SED 14:56 → STU 18:14
PROVIDERS: ADMIT Internal Medicine; ATTEND Internal Medicine
DX: I21.9 Acute myocardial infarction, unspecified (principal); E46 Unspecified protein-calorie malnutrition; B19.20 Unspecified viral hepatitis C without hepatic coma; K29.20 Alcoholic gastritis without bleeding; E87.6 Hypokalemia; F10.10 Alcohol abuse, uncomplicated; G40.909 Epilepsy, unspecified, not intractable, without status epilepticus; I10 Essential (primary) hypertension; J44.9 Chronic obstructive pulmonary disease, unspecified; M14.679 Charcot's joint, unspecified ankle and foot; Y90.8 Blood alcohol level of 240 mg/100 ml or more; Z82.49 Family history of ischemic heart disease and other diseases of the circulatory system; Z83.3 Family history of diabetes mellitus; Z85.819 Personal history of malignant neoplasm of unspecified site of lip, oral cavity, and pharynx; D69.6 Thrombocytopenia, unspecified; E80.6 Other disorders of bilirubin metabolism; D63.8 Anemia in other chronic diseases classified elsewhere; Z68.24 Body mass index [BMI] 24.0-24.9, adult
CPT/HCPCS: 36415; 71045; 80053; 80307; 81003; 82140-TC; 82150-TC; 82550-TC; 83690-TC; 84484; 85025; 85610-TC; 85730-TC; 87081; 93005; 99285; G0378; G0482; J2060; J2270; J3411; J3475; J3480; J3490; J7030; J7040; J7050

== ENCOUNTER 2018-05-29 12:52 | Emergency (ER) | payer OTHER ==
[~2018-05-29] VITALS: Ht 182.9 cm; Wt 90.7 kg
[2018-05-29 12:57] VITALS: BP_SYST 159
--- NOTE | 2018-05-29 13:00 | NUR ---
Patient to ER bed 03 to gown for evaluation. Side rails up. Report given to Candida.
--- NOTE | 2018-05-29 13:01 | NUR ---
patient arrived via BLS AOx4 from a local hotel. patient states "I have the flu and I havent drank that much." Patient has blood on footwear and vomited x 1 in the ER. Emesis was approx 100 mL of clear/brown liquid that smelled like ETOH. patient states he lives in [place] and he is not homeless. no other complaint or injury at this time.
--- NOTE | 2018-05-29 14:00 | NUR ---
patient got out of bed without assistance. patient has an unsteady gait.
[2018-05-29 14:31] LABS: BASOPHILS # (AUTO) 0.1 K/uL (0.0-0.2); BASOPHILS % (AUTO) 1.2 % (0.0-2.0); EOSINOPHILS # (AUTO) 0.1 K/uL (0.0-0.4); EOSINOPHILS % (AUTO) 0.9 % (0.0-4.0); HEMATOCRIT 30.2 % (36-54); HEMOGLOBIN 10.2 g/dL (14.0-18.0); LYMPHOCYTES # (AUTO) 2.5 K/uL (1.0-5.5); LYMPHOCYTES % (AUTO) 29.4 % (20.5-51.5); MEAN CORPUSCULAR HEMOGLOBIN 29 pg (27-31); MEAN CORPUSCULAR HGB CONC 34 % (32-36); MEAN CORPUSCULAR VOLUME 87 fL (79.0-98.0); MONOCYTES # (AUTO) 0.8 K/uL (0.0-1.0); MONOCYTES % (AUTO) 9.1 % (1.7-9.3); NEUTROPHILS # (AUTO) 5.1 K/uL (1.8-7.7); NEUTROPHILS % (AUTO) 59.4 % (40.0-70.0); PLATELET COUNT (AUTO) 157 K/uL (130-430); RED BLOOD CELL COUNT(AUTO) 3.47 MIL/uL (4.2-6.2); RED CELL DISTRIBUTION WIDTH 16.6 % (9.0-15.0); WHITE BLOOD COUNT (AUTO) 8.6 K/uL (4.8-10.8)
[2018-05-29 14:45] LABS: CALCIUM 7.7 mg/dL (8.4-11.0); CREATININE 0.81 mg/dL (0.55-1.30)
[2018-05-29 14:49] LABS: ALBUMIN 2.5 g/dL (3.4-4.8); TOTAL BILIRUBIN 1.4 mg/dL (0.0-1.0)
[2018-05-29 14:52] LABS: INR 1.1 (0.80-1.20); PROTHROMBIN TIME 11.4 SECS (9.5-12.5)
[2018-05-29 15:10] LABS: BILIRUBIN,URINE NEGATIVE (NEGATIVE); BLOOD, URINE 3+ (NEGATIVE); CLARITY/URINE CLEAR (CLEAR); COLOR,URINE YELLOW (YELLOW); GLUCOSE,URINE NEGATIVE (NEGATIVE); KETONES,URINE NEGATIVE (NEGATIVE); LEUKOCYTE ESTERASE ,URINE NEGATIVE (NEGATIVE); NITRITE, URINE NEGATIVE (NEGATIVE); PROTEIN URINE NEGATIVE (NEGATIVE); UROBILINOGEN,URINE 0.2 (0.2-1.0)
[2018-05-29 15:13] LABS: BACTERIA,URINE FEW /HPF (None Seen); RBC,URINE 20-50 /HPF (0-3); WBC,URINE 0-3 /HPF (0-3)
[2018-05-29] MEDS ORDERED: POTASSIUM CHLORIDE 20 MEQ TAB.PRT.SR PO ONE (15:15)
--- NOTE | 2018-05-29 15:24 | NUR ---
1524 - Assisting primary RN, pt medicated and then taken to radiology in stable condition.
--- NOTE | 2018-05-29 18:56 | NUR ---
patient would like his future xwife Ramila Marquez to be called [phone]. attempts were made.
--- NOTE | 2018-05-29 18:59 | NUR ---
voicemail left for Ramila Marquez
[2018-05-29] MEDS ORDERED: ONDANSETRON 4 MG ODT TAB PO ONE (19:00)
--- NOTE | 2018-05-29 19:18 | NUR ---
Refuses offer of half-way placement. Patient states that he would like to return to his previous place of residence the [facility] in [place] to attempt to retrieve his belongings. Patient was offered clothing. Patient was provided with food and a contact for the clinical social work aide. Given list of available shelters in surrounding areas.
--- NOTE | 2018-05-29 19:22 | NUR ---
[facility] [address] [facility] [phone] patient still has priviliages at the hotel but recommends an extended stay. Patient is accepting of information. charge nurse Leonidas ruby
--- NOTE | 2018-05-29 19:45 | NUR ---
Pt AAOx3, denies c/o pain or discomfort, no N/V/D, no GI bleeding noted, no needs verbalized at this time. Awaiting taxi transport for pt to return to [facility]. Contacted security to provide pt with warm clothing.
--- NOTE | 2018-05-29 20:00 | NUR ---
Security states that there are no clothing donations available at this time.
--- NOTE | 2018-05-29 20:15 | NUR ---
Pt c/o sudden onset sharp left c/p, denie SOB, -nausea. VSS. Dr. Cortes notified.
--- NOTE | 2018-05-29 20:35 | NUR ---
Pt provided with a cup of water. Pt reassured that Dr. Cortes will be in to see him. VSS.
--- NOTE | 2018-05-29 20:55 | NUR ---
Dr. Cortes at bedside to assess pt.
--- NOTE | 2018-05-29 21:15 | NUR ---
Pt resting quietly in bed, respirations even and non-labored, VSS. No needs verbalized at this time.
--- NOTE | 2018-05-29 21:39 | NUR ---
Called [employer] service for pt transport. ETA 15-20 minutes.
--- NOTE | 2018-05-29 21:50 | NUR ---
No further c/o C/P or discomfort. No needs verbalized.
[2018-05-29 22:06] VITALS: BP_SYST 145
--- NOTE | 2018-05-29 22:08 | NUR ---
Patient given written and verbal discharge instructions and verbalizes understanding. ER MD discussed with patient the results and treatment provided. Patient in stable condition. ID arm band removed. IV catheter removed intact and dressing applied, no active bleeding.No Rx given. Patient educated on pain management and to follow up with PMD. Pain Scale 0/10 . Opportunity for questions provided and answered. Medication side effect fact sheet provided.
== END 2018-05-29 22:06 | disposition home or self-care (01) ==
LOC: SED 12:52
DX: S00.81XA Abrasion of other part of head, initial encounter (principal); S00.01XA Abrasion of scalp, initial encounter; F10.129 Alcohol abuse with intoxication, unspecified; I10 Essential (primary) hypertension; Z86.79 Personal history of other diseases of the circulatory system; Z79.899 Other long term (current) drug therapy; Y90.8 Blood alcohol level of 240 mg/100 ml or more; W19.XXXA Unspecified fall, initial encounter; Y93.89 Activity, other specified; Y92.89 Other specified places as the place of occurrence of the external cause; Y99.8 Other external cause status
CPT/HCPCS: 36415; 71045; 72040; 80053; 81000; 82140; 83690; 85025; 85610; 85730; 93005; 99284; G0482; Q0162

== ENCOUNTER 2018-05-31 12:06 | Inpatient (IN) | payer OTHER ==
[~2018-05-31] VITALS: Ht 205.7 cm; Wt 88.0 kg
[2018-05-31 12:06] VITALS: BP_SYST 137
[~2018-05-31 12:06] MED LIST changes: +CLON1TAB12 PO; -CLON1TAB5 PO; -TRAZ-123 PO; +TRAZ-218 PO
[2018-05-31] MEDS ORDERED: THIAMINE HCL 100 MG/ML VIAL IM ONE (12:15)
[2018-05-31] MEDS ORDERED: FOLIC ACID 5 MG/ML VIAL IV ONE (12:15)
[2018-05-31] MEDS ORDERED: NACL 0.9% 1,000 ML IV ONE ×2 (12:15→14:15)
[2018-05-31] MEDS ORDERED: ONDANSETRON HCL 4 MG/2 ML VIAL IVP ONE (12:15)
[2018-05-31] MEDS ORDERED: FAMOTIDINE PF 20 MG/2 ML VIAL IVP ONE (12:30)
[2018-05-31 13:20] LABS: ANION GAP 14 (5-15); CALCIUM 7.6 mg/dL (8.4-11.0); CHLORIDE 95 mmol/L (98-107); CREATININE 0.99 mg/dL (0.55-1.30); GLUCOSE 127 mg/dL (70-99); SODIUM SERUM 132 mmol/L (136-145); UREA NITROGEN, BLOOD 5 mg/dL (8-21)
[2018-05-31 13:22] LABS: GFR AFRICAN AMERICAN 103 mL/min (>90)
[2018-05-31 13:23] LABS: INR 1.1 (0.80-1.20)
[2018-05-31 13:30] LABS: ALANINE AMINOTRANSFERASE 27 U/L (12-78); ALBUMIN 2.5 g/dL (3.4-4.8); ALCOHOL, BLOOD 397 mg/dL (<10); ASPARTATE AMINOTRANSFERASE 48 U/L (10-37); TOTAL BILIRUBIN 2.1 mg/dL (0.0-1.0)
[2018-05-31] MEDS ORDERED: KCL 40 mEq in 100 mL (PREMIX) 100 ML IV ONE (13:30)
[2018-05-31 13:38] LABS: BILIRUBIN,URINE NEGATIVE (NEGATIVE); BLOOD, URINE 1+ (NEGATIVE); CLARITY/URINE CLEAR (CLEAR); COLOR,URINE YELLOW (YELLOW); GLUCOSE,URINE NEGATIVE (NEGATIVE); KETONES,URINE NEGATIVE (NEGATIVE); LEUKOCYTE ESTERASE ,URINE NEGATIVE (NEGATIVE); NITRITE, URINE NEGATIVE (NEGATIVE); PH,URINE 6.5 (5.0-8.0); PROTEIN URINE NEGATIVE (NEGATIVE); UROBILINOGEN,URINE 0.2 (0.2-1.0)
[2018-05-31 13:42] LABS: BASOPHILS # (AUTO) 0.1 K/uL (0.0-0.2); BASOPHILS % (AUTO) 0.8 % (0.0-2.0); EOSINOPHILS % (AUTO) 0.2 % (0.0-4.0); HEMATOCRIT 29.3 % (36-54); HEMOGLOBIN 10.2 g/dL (14.0-18.0); LYMPHOCYTES # (AUTO) 1.2 K/uL (1.0-5.5); LYMPHOCYTES % (AUTO) 11.4 % (20.5-51.5); MEAN CORPUSCULAR HEMOGLOBIN 30 pg (27-31); MEAN CORPUSCULAR HGB CONC 35 % (32-36); MEAN CORPUSCULAR VOLUME 86 fL (79.0-98.0); MONOCYTES # (AUTO) 0.3 K/uL (0.0-1.0); MONOCYTES % (AUTO) 3.3 % (1.7-9.3); NEUTROPHILS # (AUTO) 8.6 K/uL (1.8-7.7); NEUTROPHILS % (AUTO) 84.3 % (40.0-70.0); PLATELET COUNT (AUTO) 167 K/uL (130-430); RED BLOOD CELL COUNT(AUTO) 3.41 MIL/uL (4.2-6.2); RED CELL DISTRIBUTION WIDTH 16.6 % (9.0-15.0); WHITE BLOOD COUNT (AUTO) 10.2 K/uL (4.8-10.8)
[2018-05-31 13:51] LABS: BARBITURATE, URINE NEGATIVE (NEG <=200); BENZODIAZEPINE, URINE NEGATIVE (NEG <=150); CANNABINOID, URINE NEGATIVE (NEG <=50); COCAINE, URINE NEGATIVE (NEG <=150); METHAMPHETAMINES SCREEN,URINE NEGATIVE (NEG <=500); OPIATE, URINE NEGATIVE (NEG <=100); PHENCYCLIDINE SCREEN,URINE NEGATIVE (NEG <=25); URINE AMPHETAMINE NEGATIVE (NEG <=500); URINE METHADONE NEGATIVE (NEG <=200); URINE OXYCODONE SCREEN NEGATIVE (NEG <=100)
[2018-05-31 13:52] LABS: UR TRICYCLIC ANTIDEPRESSANTS NEGATIVE (NEG <=300); URINE PROPOXYPHENE SCREEN NEGATIVE (NEG <=300)
[2018-05-31 13:54] LABS: BACTERIA,URINE RARE /HPF (None Seen); MUCUS,URINE None Seen /LPF (None Seen); RBC,URINE 0-3 /HPF (0-3); WBC,URINE 0-3 /HPF (0-3)
[2018-05-31] MEDS ORDERED: METOCLOPRAMIDE HCL 10 MG/2 ML VIAL IVP ONE (14:15)
[2018-05-31] MEDS ORDERED: OCTREOTIDE ACETATE 50 MCG/ML AMP IVP ONE (14:15)
[2018-05-31] MEDS ORDERED: D5NS 1,000 ML IV SCH (14:25)
[2018-05-31] MEDS ORDERED: LORazepam 2 MG/ML VIAL IVP PRN (14:30)
[2018-05-31 15:41] VITALS: BP_SYST 140
[2018-05-31] MEDS: D5NS 1,000 ML IV SCH ×2 (16:30→20:07)
[2018-05-31] MEDS ORDERED: chlordiazePOXIDE HCL 25 MG CAPSULE PO ONE (17:15)
[2018-05-31] MEDS ORDERED: BALSAM PERU/CASTOR OIL 60 GM OINT...G. TP ONE (17:15)
[2018-05-31 18:00] LABS: HEMATOCRIT 29.1 % (36-54); HEMOGLOBIN 9.9 g/dL (14.0-18.0)
[2018-05-31] MEDS ORDERED: PANTOPRAZOLE SODIUM 80 MG in NS 100 ML IV ONE (18:00)
[2018-05-31] MEDS: GABAPENTIN 400 MG CAPSULE PO SCH (20:06)
[2018-05-31] MEDS: chlordiazePOXIDE HCL 25 MG CAPSULE PO SCH (20:07)
[2018-05-31] MEDS: MORPHINE 4 MG/ML INJ. SYRINGE IVP PRN (20:18)
[2018-05-31] MEDS: LORazepam 2 MG/ML VIAL IVP PRN (21:24)
[2018-05-31] MEDS: PANTOPRAZOLE SODIUM 40 MG in NS 50 ML IV SCH (21:46)
[2018-05-31 22:53] LABS: HEMATOCRIT 24.2 % (36-54)
[2018-05-31 23:49] VITALS: BP_SYST 136
[2018-05-31 23:54] VITALS: BP_SYST 134
[2018-06-01] MEDS: PANTOPRAZOLE SODIUM 40 MG in NS 50 ML IV SCH ×5 (00:37→21:08)
[2018-06-01] MEDS: D5NS 1,000 ML IV SCH ×4 (00:43→23:13)
[2018-06-01] MEDS: MORPHINE 4 MG/ML INJ. SYRINGE IVP PRN ×3 (05:00→18:07)
[2018-06-01] MEDS: LORazepam 2 MG/ML VIAL IVP PRN (06:40)
[2018-06-01 06:55] LABS: HEMATOCRIT 22.5 % (36-54); HEMOGLOBIN 7.7 g/dL (14.0-18.0)
[2018-06-01 08:00] VITALS: BP_SYST 139
[2018-06-01] MEDS: GABAPENTIN 400 MG CAPSULE PO SCH ×4 (09:31→21:08)
[2018-06-01] MEDS: BALSAM PERU/CASTOR OIL 60 GM OINT...G. TP SCH (09:31)
[2018-06-01] MEDS: chlordiazePOXIDE HCL 25 MG CAPSULE PO SCH ×3 (09:31→21:08)
[2018-06-01 11:12] LABS: HEMATOCRIT 24.6 % (36-54); HEMOGLOBIN 8.2 g/dL (14.0-18.0)
[2018-06-01] MEDS: BANANA BAG 1 EA, FOLIC ACID 1 MG, THIAMINE HCL 100 MG, MAGNESIUM SULFATE 1 GM, MVI 10 M... IV SCH ×5 (11:48)
[2018-06-01 12:51] VITALS: BP_SYST 143
[2018-06-01 12:59] LABS: CALCIUM 7.2 mg/dL (8.4-11.0); CREATININE 0.76 mg/dL (0.55-1.30); POTASSIUM 3.1 mmol/L (3.5-5.1)
[2018-06-01 13:13] LABS: TOTAL BILIRUBIN 1.6 mg/dL (0.0-1.0)
[2018-06-01 16:30] VITALS: BP_SYST 139
[2018-06-01 17:24] LABS: HEMATOCRIT 25.5 % (36-54); HEMOGLOBIN 8.5 g/dL (14.0-18.0)
[2018-06-01 20:30] VITALS: BP_SYST 135
[2018-06-01 23:23] LABS: HEMATOCRIT 24.8 % (36-54); HEMOGLOBIN 8.2 g/dL (14.0-18.0)
[2018-06-02] MEDS: PANTOPRAZOLE SODIUM 40 MG in NS 50 ML IV SCH ×5 (00:44→20:31)
[2018-06-02 01:12] VITALS: BP_SYST 121
[2018-06-02] MEDS: BALSAM PERU/CASTOR OIL 60 GM OINT...G. TP SCH (04:54)
[2018-06-02] MEDS: D5NS 1,000 ML IV SCH ×3 (04:54→16:14)
[2018-06-02 07:28] LABS: HEMATOCRIT 25.7 % (36-54); HEMOGLOBIN 8.7 g/dL (14.0-18.0)
[2018-06-02] MEDS: GABAPENTIN 400 MG CAPSULE PO SCH ×4 (08:17→20:25)
[2018-06-02] MEDS: MORPHINE 4 MG/ML INJ. SYRINGE IVP PRN ×3 (08:17→20:30)
[2018-06-02] MEDS: chlordiazePOXIDE HCL 25 MG CAPSULE PO SCH ×3 (08:17→20:24)
[2018-06-02 08:24] VITALS: BP_SYST 134
[2018-06-02 08:54] LABS: BASOPHILS % (AUTO) 0.8 % (0.0-2.0); EOSINOPHILS # (AUTO) 0.1 K/uL (0.0-0.4); EOSINOPHILS % (AUTO) 1.8 % (0.0-4.0); HEMATOCRIT 26.2 % (36-54); HEMOGLOBIN 8.8 g/dL (14.0-18.0); LYMPHOCYTES # (AUTO) 1.2 K/uL (1.0-5.5); LYMPHOCYTES % (AUTO) 20.3 % (20.5-51.5); MEAN CORPUSCULAR HEMOGLOBIN 30 pg (27-31); MEAN CORPUSCULAR HGB CONC 34 % (32-36); MEAN CORPUSCULAR VOLUME 89 fL (79.0-98.0); MONOCYTES # (AUTO) 0.3 K/uL (0.0-1.0); MONOCYTES % (AUTO) 5.3 % (1.7-9.3); NEUTROPHILS # (AUTO) 4.3 K/uL (1.8-7.7); NEUTROPHILS % (AUTO) 71.8 % (40.0-70.0); RED BLOOD CELL COUNT(AUTO) 2.94 MIL/uL (4.2-6.2); RED CELL DISTRIBUTION WIDTH 16.7 % (9.0-15.0); WHITE BLOOD COUNT (AUTO) 5.9 K/uL (4.8-10.8)
[2018-06-02 08:59] LABS: PLATELET COUNT (AUTO) 49 K/uL (130-430)
[2018-06-02 11:23] VITALS: BP_SYST 140
[2018-06-02] MEDS: BANANA BAG 1 EA, FOLIC ACID 1 MG, THIAMINE HCL 100 MG, MAGNESIUM SULFATE 1 GM, MVI 10 M... IV SCH ×5 (11:31)
[2018-06-02 15:32] VITALS: BP_SYST 123
[2018-06-02 17:19] LABS: HEMOGLOBIN 7.4 g/dL (14.0-18.0)
[2018-06-02 20:00] VITALS: BP_SYST 120
[2018-06-02] MEDS ORDERED: PANTOPRAZOLE SODIUM 40 MG/VIAL (PROTONIX) ONE (20:12)
[2018-06-03] VITALS (8 sets, daily range): BP systolic 119–138
[2018-06-03] MEDS: LORazepam 2 MG/ML VIAL IVP PRN ×2 (00:17→21:57)
[2018-06-03] MEDS: D5NS 1,000 ML IV SCH ×3 (00:41→16:25)
[2018-06-03] MEDS: MORPHINE 4 MG/ML INJ. SYRINGE IVP PRN ×5 (01:20→22:09)
[2018-06-03] MEDS: PANTOPRAZOLE SODIUM 40 MG in NS 50 ML IV SCH ×3 (01:24→12:15)
[2018-06-03 06:51] LABS: BASOPHILS % (AUTO) 0.9 % (0.0-2.0); EOSINOPHILS # (AUTO) 0.2 K/uL (0.0-0.4); EOSINOPHILS % (AUTO) 3.7 % (0.0-4.0); HEMATOCRIT 23.4 % (36-54); HEMOGLOBIN 7.9 g/dL (14.0-18.0); LYMPHOCYTES # (AUTO) 1.1 K/uL (1.0-5.5); LYMPHOCYTES % (AUTO) 21.3 % (20.5-51.5); MEAN CORPUSCULAR HEMOGLOBIN 31 pg (27-31); MEAN CORPUSCULAR HGB CONC 34 % (32-36); MEAN CORPUSCULAR VOLUME 90 fL (79.0-98.0); MONOCYTES # (AUTO) 0.3 K/uL (0.0-1.0); MONOCYTES % (AUTO) 5.9 % (1.7-9.3); NEUTROPHILS # (AUTO) 3.4 K/uL (1.8-7.7); NEUTROPHILS % (AUTO) 68.2 % (40.0-70.0); RED BLOOD CELL COUNT(AUTO) 2.59 MIL/uL (4.2-6.2); RED CELL DISTRIBUTION WIDTH 16.3 % (9.0-15.0)
[2018-06-03 07:15] LABS: PLATELET COUNT (AUTO) 36 K/uL (130-430)
[2018-06-03 07:26] LABS: ALBUMIN 1.7 g/dL (3.4-4.8); CALCIUM 7.3 mg/dL (8.4-11.0); CREATININE 0.76 mg/dL (0.55-1.30); TOTAL BILIRUBIN 1.2 mg/dL (0.0-1.0)
[2018-06-03 07:33] LABS: POTASSIUM 2.9 mmol/L (3.5-5.1)
[2018-06-03] MEDS ORDERED: KCL 40mEq in D5/0.45NS 1000 mL 1,000 ML IV SCH (08:15)
[2018-06-03] MEDS ORDERED: POTASSIUM CHLORIDE 20 MEQ TAB.PRT.SR PO ONE (08:15)
[2018-06-03] MEDS: BALSAM PERU/CASTOR OIL 60 GM OINT...G. TP SCH (09:00)
[2018-06-03] MEDS ORDERED: POTASSIUM CHLORIDE 40 MEQ in D5W 250 ML IV ONE (09:30)
[2018-06-03] MEDS: chlordiazePOXIDE HCL 25 MG CAPSULE PO SCH ×3 (09:58→22:47)
[2018-06-03] MEDS: GABAPENTIN 400 MG CAPSULE PO SCH ×4 (09:58→22:35)
[2018-06-03] MEDS: BANANA BAG 1 EA, FOLIC ACID 1 MG, THIAMINE HCL 100 MG, MAGNESIUM SULFATE 1 GM, MVI 10 M... IV SCH ×5 (12:14)
[2018-06-03] MEDS: PANTOPRAZOLE SODIUM 40 MG TAB PO SCH (22:35)
[2018-06-04] VITALS (7 sets, daily range): BP systolic 123–143
[2018-06-04] MEDS: MORPHINE 4 MG/ML INJ. SYRINGE IVP PRN ×2 (03:48→08:58)
[2018-06-04] MEDS: LORazepam 2 MG/ML VIAL IVP PRN (04:58)
[2018-06-04 08:29] LABS: BASOPHILS % (AUTO) 1.2 % (0.0-2.0); EOSINOPHILS # (AUTO) 0.1 K/uL (0.0-0.4); EOSINOPHILS % (AUTO) 3.1 % (0.0-4.0); HEMATOCRIT 26.9 % (36-54); LYMPHOCYTES # (AUTO) 0.8 K/uL (1.0-5.5); LYMPHOCYTES % (AUTO) 21.6 % (20.5-51.5); MEAN CORPUSCULAR HEMOGLOBIN 31 pg (27-31); MEAN CORPUSCULAR HGB CONC 34 % (32-36); MEAN CORPUSCULAR VOLUME 91 fL (79.0-98.0); MONOCYTES # (AUTO) 0.3 K/uL (0.0-1.0); NEUTROPHILS # (AUTO) 2.5 K/uL (1.8-7.7); NEUTROPHILS % (AUTO) 65.1 % (40.0-70.0); RED BLOOD CELL COUNT(AUTO) 2.96 MIL/uL (4.2-6.2); RED CELL DISTRIBUTION WIDTH 15.9 % (9.0-15.0); WHITE BLOOD COUNT (AUTO) 3.7 K/uL (4.8-10.8)
[2018-06-04 08:37] LABS: CALCIUM 7.7 mg/dL (8.4-11.0); POTASSIUM 3.7 mmol/L (3.5-5.1)
[2018-06-04] MEDS: chlordiazePOXIDE HCL 25 MG CAPSULE PO SCH ×3 (08:45→20:45)
[2018-06-04] MEDS: GABAPENTIN 400 MG CAPSULE PO SCH ×4 (08:45→20:45)
[2018-06-04] MEDS: PANTOPRAZOLE SODIUM 40 MG TAB PO SCH ×2 (08:45→20:45)
[2018-06-04 08:48] LABS: ALBUMIN 1.8 g/dL (3.4-4.8)
[2018-06-04 08:49] LABS: PLATELET COUNT (AUTO) 39 K/uL (130-430)
[2018-06-04] MEDS: BALSAM PERU/CASTOR OIL 60 GM OINT...G. TP SCH (08:49)
[2018-06-04 09:15] LABS: CREATININE 0.78 mg/dL (0.55-1.30)
[2018-06-04] MEDS: BANANA BAG 1 EA, FOLIC ACID 1 MG, THIAMINE HCL 100 MG, MAGNESIUM SULFATE 1 GM, MVI 10 M... IV SCH ×5 (12:14)
[2018-06-04] MEDS: HYDROcodone/ACETAMIN 5-325 MG TAB (NORCO/ VICODIN) PO PRN ×2 (13:10→19:48)
[2018-06-04] MEDS ORDERED: HYDROcodone/ACETAMIN 10-325 MG TAB PO PRN (15:00)
[2018-06-05] MEDS: GABAPENTIN 400 MG CAPSULE PO SCH ×2 (08:18→13:15)
[2018-06-05] MEDS: PANTOPRAZOLE SODIUM 40 MG TAB PO SCH (08:19)
[2018-06-05] MEDS: chlordiazePOXIDE HCL 25 MG CAPSULE PO SCH (08:19)
[2018-06-05] MEDS: BALSAM PERU/CASTOR OIL 60 GM OINT...G. TP SCH (08:19)
[2018-06-05 12:00] VITALS: BP_SYST 135
[2018-06-05] MEDS: BANANA BAG 1 EA, FOLIC ACID 1 MG, THIAMINE HCL 100 MG, MAGNESIUM SULFATE 1 GM, MVI 10 M... IV SCH ×5 (13:16)
[2018-06-05 15:01] VITALS: BP_SYST 99
[2018-06-05 15:28] VITALS: BP_SYST 118
== END 2018-06-05 17:00 | disposition home or self-care (01) | DRG 378 ==
LOC: SED 12:06 → STU 14:25 → SMU 15:13 → STU 15:20 → SMU 15:42 → STU 22:25 → SMU 06-01 19:49
PROVIDERS: ADMIT Internal Medicine Hospice and Palliative Medicine; ATTEND Internal Medicine Hospice and Palliative Medicine
PROC: 30233N1 Transfusion of Nonautologous Red Blood Cells into Peripheral Vein, Percutaneous Approach (ICD-10-PCS; principal; 2018-06-03)
DX: K92.2 Gastrointestinal hemorrhage, unspecified (principal); D62 Acute posthemorrhagic anemia; K76.6 Portal hypertension; L97.909 Non-pressure chronic ulcer of unspecified part of unspecified lower leg with unspecified severity; M14.679 Charcot's joint, unspecified ankle and foot; D64.9 Anemia, unspecified; R74.0 Nonspecific elevation of levels of transaminase and lactic acid dehydrogenase [LDH]; E87.6 Hypokalemia; D69.6 Thrombocytopenia, unspecified; I10 Essential (primary) hypertension; G62.9 Polyneuropathy, unspecified; F10.129 Alcohol abuse with intoxication, unspecified; K70.30 Alcoholic cirrhosis of liver without ascites; Z79.899 Other long term (current) drug therapy; Z85.819 Personal history of malignant neoplasm of unspecified site of lip, oral cavity, and pharynx; Z86.14 Personal history of Methicillin resistant Staphylococcus aureus infection; Z91.19 Patient's noncompliance with other medical treatment and regimen
CPT/HCPCS: 36415; 70450-TC; 71045; 80053; 80307; 81000-TC; 84484; 85018-TC; 85025; 85610-TC; 85730-TC; 86886; 86900; 86901; 86920; 87081; 93005; 96361; 96365; 96372; 96375; 97116-GP; 97530-GP; 99285; C9113; G0378; G0482; J2060; J2270; J2354; J2405; J2765; J3411; J3475; J3480; J3490; J7030; J7042; J7050; J7060; P9021

== ENCOUNTER 2018-07-02 13:55 | Inpatient (IN) | payer OTHER ==
[~2018-07-02] VITALS: Ht 205.7 cm; Wt 83.9 kg
[2018-07-02 18:14] VITALS: BP_SYST 120
[2018-07-02] MEDS ORDERED: HYDR-3608 PO (18:20)
[2018-07-02] MEDS ORDERED: MORPHINE 4 MG/ML INJ. SYRINGE IVP PRN (19:00)
[2018-07-02 20:12] LABS: CREATININE 0.79 mg/dL (0.55-1.30)
[2018-07-02 20:13] LABS: INR 1.3 (0.80-1.20); PROTHROMBIN TIME 13.3 SECS (9.5-12.5)
[2018-07-02 20:15] LABS: WHITE BLOOD COUNT (AUTO) 4.3 K/uL (4.8-10.8)
[2018-07-02 20:16] LABS: BASOPHILS % (AUTO) 0.7 % (0.0-2.0); EOSINOPHILS % (AUTO) 1.3 % (0.0-4.0); HEMATOCRIT 23.7 % (36-54); LYMPHOCYTES % (AUTO) 18.5 % (20.5-51.5); MEAN CORPUSCULAR HEMOGLOBIN 30 pg (27-31); MEAN CORPUSCULAR HGB CONC 34 % (32-36); MEAN CORPUSCULAR VOLUME 90 fL (79.0-98.0); MONOCYTES % (AUTO) 8.2 % (1.7-9.3); NEUTROPHILS % (AUTO) 71.3 % (40.0-70.0); PLATELET COUNT (AUTO) 57 K/uL (130-430); RED BLOOD CELL COUNT(AUTO) 2.64 MIL/uL (4.2-6.2); RED CELL DISTRIBUTION WIDTH 17.1 % (9.0-15.0)
[2018-07-02 20:17] LABS: EOSINOPHILS # (AUTO) 0.1 K/uL (0.0-0.4); LYMPHOCYTES # (AUTO) 0.8 K/uL (1.0-5.5); MONOCYTES # (AUTO) 0.4 K/uL (0.0-1.0)
[2018-07-02 20:21] LABS: ALBUMIN 1.8 g/dL (3.4-4.8); TOTAL BILIRUBIN 2.5 mg/dL (0.0-1.0)
[2018-07-02 20:34] LABS: CALCIUM 6.5 mg/dL (8.4-11.0); POTASSIUM 2.6 mmol/L (3.5-5.1)
[2018-07-02 20:55] VITALS: BP_SYST 119
[2018-07-02] MEDS ORDERED: D5 IV SCH (21:15)
[2018-07-02] MEDS ORDERED: [UNRECOGNIZED DRUG - OTHER] IV SCH (21:15)
[2018-07-02] MEDS ORDERED: KCL IV SCH (21:15)
[2018-07-02] MEDS ORDERED: POTASSIUM CHLORIDE IV SCH (22:00)
[2018-07-02] MEDS ORDERED: NS IV SCH (22:00)
[2018-07-02] MEDS ORDERED: POTASSIUM CHLORIDE 20 MEQ TAB.PRT.SR PO SCH (22:00)
[2018-07-02] MEDS: KCL 20 mEq in 100 mL (PREMIX) 100 ML IV ONE ×2 (22:40→22:44)
[2018-07-03 00:12] VITALS: BP_SYST 133
[2018-07-03] MEDS ORDERED: ALBUTEROL SULFATE 0.083% 2.5 MG/3 ML VIAL.NEB INH PRN (01:15)
[2018-07-03] MEDS ORDERED: ONDANSETRON HCL 4 MG/2 ML VIAL IVP PRN (01:15)
[2018-07-03 01:23] VITALS: BP_SYST 133
[2018-07-03] MEDS ORDERED: cefTRIAXone 1 GM IVPB PREMIX 50 ML IV SCH (02:00)
[2018-07-03] MEDS ORDERED: cefTRIAXone 1 GM IVPB PREMIX 50 ML IV ONE (02:30)
[2018-07-03] MEDS: NACL 0.9% 1,000 ML IV SCH ×3 (02:59→22:32)
[2018-07-03 08:05] LABS: CREATININE 0.6 mg/dL (0.55-1.30)
[2018-07-03 08:08] LABS: TOTAL IRON BIND. CAPACITY 134 ug/dL (250-450)
[2018-07-03 08:09] VITALS: BP_SYST 126
[2018-07-03 08:14] LABS: ALBUMIN 1.5 g/dL (3.4-4.8); TOTAL BILIRUBIN 1.4 mg/dL (0.0-1.0)
[2018-07-03 08:19] LABS: POTASSIUM 2.7 mmol/L (3.5-5.1)
[2018-07-03 08:20] LABS: CALCIUM 6.6 mg/dL (8.4-11.0)
[2018-07-03] MEDS ORDERED: COMMUNICATION ORDER XX ONE (08:30)
[2018-07-03] MEDS: PANTOPRAZOLE SODIUM 40 MG TAB PO SCH (08:38)
[2018-07-03] MEDS: FOLIC ACID 1 MG, THIAMINE HCL 100 MG, MAGNESIUM SULFATE 1 GM, MVI 10 ML in NACL 0.9% 1,... IV SCH (08:39)
[2018-07-03] MEDS: HYDROcodone/ACETAMIN 7.5-325 MG TAB PO PRN ×2 (08:39→16:33)
[2018-07-03] MEDS: GABAPENTIN 400 MG CAPSULE PO SCH ×4 (08:39→22:32)
[2018-07-03 08:43] LABS: HEMOGLOBIN 7.2 g/dL (14.0-18.0); RED BLOOD CELL COUNT(AUTO) 2.35 MIL/uL (4.2-6.2); WHITE BLOOD COUNT (AUTO) 3.4 K/uL (4.8-10.8)
[2018-07-03 08:45] LABS: HEMATOCRIT 21.1 % (36-54)
[2018-07-03 08:46] LABS: LYMPHOCYTES % (AUTO) 21.8 % (20.5-51.5); MEAN CORPUSCULAR HEMOGLOBIN 31 pg (27-31); MEAN CORPUSCULAR HGB CONC 34 % (32-36); MEAN CORPUSCULAR VOLUME 90 fL (79.0-98.0); NEUTROPHILS % (AUTO) 66.2 % (40.0-70.0); PLATELET COUNT (AUTO) 53 K/uL (130-430); RED CELL DISTRIBUTION WIDTH 17.3 % (9.0-15.0)
[2018-07-03 08:47] LABS: BASOPHILS % (AUTO) 1.5 % (0.0-2.0); EOSINOPHILS # (AUTO) 0.1 K/uL (0.0-0.4); EOSINOPHILS % (AUTO) 2.6 % (0.0-4.0); LYMPHOCYTES # (AUTO) 0.7 K/uL (1.0-5.5); MONOCYTES # (AUTO) 0.3 K/uL (0.0-1.0); MONOCYTES % (AUTO) 7.9 % (1.7-9.3); NEUTROPHILS # (AUTO) 2.2 K/uL (1.8-7.7)
[2018-07-03] MEDS ORDERED: POTASSIUM CHLORIDE 60 MEQ in NS 500 ML IV ONE (09:15)
[2018-07-03 11:13] VITALS: BP_SYST 99
[2018-07-03 16:45] VITALS: BP_SYST 127
[2018-07-03 16:48] LABS: CREATININE 0.74 mg/dL (0.55-1.30); POTASSIUM 3.3 mmol/L (3.5-5.1)
[2018-07-03 16:50] LABS: CALCIUM 6.8 mg/dL (8.4-11.0)
[2018-07-03] MEDS ORDERED: CALCIUM CHLORIDE 1 GM in NS 100 ML IV ONE (18:15)
[2018-07-03] MEDS: MORPHINE 4 MG/ML INJ. SYRINGE IVP PRN ×2 (22:29→22:44)
[2018-07-03] MEDS: cefTRIAXone 1 GM IVPB PREMIX 50 ML IV SCH (22:31)
[2018-07-04 00:14] VITALS: BP_SYST 114
[2018-07-04] MEDS: NACL 0.9% 1,000 ML IV SCH ×2 (08:00→18:24)
[2018-07-04] MEDS: GABAPENTIN 400 MG CAPSULE PO SCH ×4 (09:00→21:04)
[2018-07-04] MEDS: FOLIC ACID 1 MG, THIAMINE HCL 100 MG, MAGNESIUM SULFATE 1 GM, MVI 10 ML in NACL 0.9% 1,... IV SCH (09:00)
[2018-07-04] MEDS: PANTOPRAZOLE SODIUM 40 MG TAB PO SCH (09:00)
[2018-07-04] MEDS: HYDROcodone/ACETAMIN 7.5-325 MG TAB PO PRN ×2 (10:41→21:06)
[2018-07-04] MEDS ORDERED: PIPERACILLIN/TAZO 3.375/DEX-IS 50 ML IV ONE (10:45)
[2018-07-04 10:53] LABS: RED BLOOD CELL COUNT(AUTO) 2.35 MIL/uL (4.2-6.2); WHITE BLOOD COUNT (AUTO) 5.4 K/uL (4.8-10.8)
[2018-07-04 10:54] LABS: BASOPHILS % (AUTO) 2.7 % (0.0-2.0); EOSINOPHILS % (AUTO) 2.4 % (0.0-4.0); MEAN CORPUSCULAR HEMOGLOBIN 31 pg (27-31); MEAN CORPUSCULAR HGB CONC 33 % (32-36); MEAN CORPUSCULAR VOLUME 93 fL (79.0-98.0); MONOCYTES % (AUTO) 8.5 % (1.7-9.3); NEUTROPHILS % (AUTO) 69.4 % (40.0-70.0); PLATELET COUNT (AUTO) 66 K/uL (130-430); RED CELL DISTRIBUTION WIDTH 17.3 % (9.0-15.0)
[2018-07-04 10:55] LABS: BASOPHILS # (AUTO) 0.1 K/uL (0.0-0.2); EOSINOPHILS # (AUTO) 0.1 K/uL (0.0-0.4); LYMPHOCYTES # (AUTO) 0.9 K/uL (1.0-5.5); MONOCYTES # (AUTO) 0.5 K/uL (0.0-1.0); NEUTROPHILS # (AUTO) 3.8 K/uL (1.8-7.7)
[2018-07-04 10:59] LABS: HEMATOCRIT 21.9 % (36-54); HEMOGLOBIN 7.3 g/dL (14.0-18.0)
[2018-07-04 11:02] LABS: CREATININE 0.76 mg/dL (0.55-1.30); POTASSIUM 3.9 mmol/L (3.5-5.1)
[2018-07-04 11:08] LABS: ALBUMIN 1.5 g/dL (3.4-4.8); TOTAL BILIRUBIN 0.7 mg/dL (0.0-1.0)
[2018-07-04 11:27] VITALS: BP_SYST 119
[2018-07-04] MEDS: MORPHINE 4 MG/ML INJ. SYRINGE IVP PRN ×3 (13:01→23:37)
[2018-07-04 15:31] VITALS: BP_SYST 110
[2018-07-04] MEDS: BALSAM PERU/CASTOR OIL 60 GM OINT...G. TP SCH (17:30)
[2018-07-04] MEDS: PIPERACILLIN/TAZO 3.375/DEX-IS 50 ML IV SCH ×2 (18:23→23:33)
[2018-07-04 21:02] VITALS: BP_SYST 106
[2018-07-04] MEDS: cefTRIAXone 1 GM IVPB PREMIX 50 ML IV SCH (21:04)
[2018-07-05 00:56] VITALS: BP_SYST 110
[2018-07-05] MEDS: MORPHINE 4 MG/ML INJ. SYRINGE IVP PRN ×2 (04:09→09:12)
[2018-07-05] MEDS: NACL 0.9% 1,000 ML IV SCH (04:19)
[2018-07-05] MEDS: PIPERACILLIN/TAZO 3.375/DEX-IS 50 ML IV SCH ×4 (05:04→23:32)
[2018-07-05 08:06] VITALS: BP_SYST 113
[2018-07-05] MEDS: GABAPENTIN 400 MG CAPSULE PO SCH ×4 (09:11→20:48)
[2018-07-05] MEDS: PANTOPRAZOLE SODIUM 40 MG TAB PO SCH (09:11)
[2018-07-05] MEDS: BALSAM PERU/CASTOR OIL 60 GM OINT...G. TP SCH (09:11)
[2018-07-05] MEDS: FOLIC ACID 1 MG, THIAMINE HCL 100 MG, MAGNESIUM SULFATE 1 GM, MVI 10 ML in NACL 0.9% 1,... IV SCH (09:11)
[2018-07-05 11:03] LABS: INR 1.1 (0.80-1.20); PROTHROMBIN TIME 11.2 SECS (9.5-12.5)
[2018-07-05 11:17] LABS: HEMATOCRIT 22.2 % (36-54); HEMOGLOBIN 7.4 g/dL (14.0-18.0); MEAN CORPUSCULAR HEMOGLOBIN 31 pg (27-31); MEAN CORPUSCULAR VOLUME 94 fL (79.0-98.0); RED BLOOD CELL COUNT(AUTO) 2.37 MIL/uL (4.2-6.2); WHITE BLOOD COUNT (AUTO) 5.8 K/uL (4.8-10.8)
[2018-07-05 11:18] LABS: MEAN CORPUSCULAR HGB CONC 33 % (32-36); PLATELET COUNT (AUTO) 73 K/uL (130-430); RED CELL DISTRIBUTION WIDTH 17.7 % (9.0-15.0)
[2018-07-05 11:27] LABS: BAND % (MANUAL) 4 % (0-6); LYMPHOCYTES % (MANUAL) 24 % (20-46)
[2018-07-05 11:28] LABS: BASOPHILS % (MANUAL) 0 % (0-2); EOSINOPHILS % (MANUAL) 2 % (0-7); MONOCYTES % (MANUAL) 4 % (0-11)
[2018-07-05 12:10] VITALS: BP_SYST 120
[2018-07-05] MEDS: HYDROcodone/ACETAMIN 7.5-325 MG TAB PO PRN ×2 (13:38→20:49)
[2018-07-05 16:14] VITALS: BP_SYST 115
[2018-07-05 20:46] VITALS: BP_SYST 115
[2018-07-05] MEDS: cefTRIAXone 1 GM IVPB PREMIX 50 ML IV SCH (20:49)
[2018-07-05 21:10] LABS: BILIRUBIN,URINE NEGATIVE (NEGATIVE); BLOOD, URINE NEGATIVE (NEGATIVE); CLARITY/URINE CLEAR (CLEAR); COLOR,URINE YELLOW (YELLOW); GLUCOSE,URINE NEGATIVE (NEGATIVE); KETONES,URINE NEGATIVE (NEGATIVE); LEUKOCYTE ESTERASE ,URINE NEGATIVE (NEGATIVE); NITRITE, URINE NEGATIVE (NEGATIVE); PH,URINE 6.5 (5.0-8.0); PROTEIN URINE NEGATIVE (NEGATIVE); UROBILINOGEN,URINE 0.2 (0.2-1.0)
[2018-07-06] MEDS: LORazepam 2 MG/ML VIAL IVP PRN ×4 (00:16→23:00)
[2018-07-06] MEDS: PIPERACILLIN/TAZO 3.375/DEX-IS 50 ML IV SCH ×4 (05:11→23:02)
[2018-07-06 06:12] VITALS: BP_SYST 102
[2018-07-06 08:00] VITALS: BP_SYST 123
[2018-07-06] MEDS: GABAPENTIN 400 MG CAPSULE PO SCH ×4 (09:00→21:30)
[2018-07-06] MEDS: BALSAM PERU/CASTOR OIL 60 GM OINT...G. TP SCH (10:51)
[2018-07-06] MEDS: FOLIC ACID 1 MG, THIAMINE HCL 100 MG, MAGNESIUM SULFATE 1 GM, MVI 10 ML in NACL 0.9% 1,... IV SCH (10:51)
[2018-07-06] MEDS ORDERED: LIDOCAINE 1% 10 MG/ML, 20 ML MDV INJ ONE (11:22)
[2018-07-06] MEDS ORDERED: NS 1000 ML IV.SOLN IV ONE (11:22)
[2018-07-06] MEDS ORDERED: MIDAZOLAM HCL 5 MG/5 ML VIAL IVP ONE (11:22)
[2018-07-06] MEDS ORDERED: NS IRRIG SOLN 1000 ML IR ONE (11:22)
[2018-07-06] MEDS ORDERED: PROPOFOL 200MG/ 20ML VIAL (DIPRIVAN) IV ONE (11:22)
[2018-07-06] MEDS ORDERED: fentaNYL CITRATE/PF 100 MCG/2 ML AMP IVP ONE (11:22)
[2018-07-06] MEDS ORDERED: BUPIVACAINE /EPINEPHRINE/PF 0.5% 30 ML VIAL INJ ONE (11:22)
[2018-07-06 12:31] VITALS: BP_SYST 119
[2018-07-06] MEDS: PANTOPRAZOLE SODIUM 40 MG TAB PO SCH (12:52)
[2018-07-06] MEDS: HYDROcodone/ACETAMIN 7.5-325 MG TAB PO PRN ×4 (12:53→22:59)
[2018-07-06 17:10] VITALS: BP_SYST 110
[2018-07-06] MEDS: MORPHINE 4 MG/ML INJ. SYRINGE IVP PRN ×2 (18:43→23:00)
[2018-07-06 20:00] VITALS: BP_SYST 106
[2018-07-06 23:34] VITALS: BP_SYST 110
[2018-07-07] MEDS: MORPHINE 4 MG/ML INJ. SYRINGE IVP PRN ×5 (02:45→18:42)
[2018-07-07] MEDS: LORazepam 2 MG/ML VIAL IVP PRN (04:02)
[2018-07-07] MEDS: PIPERACILLIN/TAZO 3.375/DEX-IS 50 ML IV SCH ×2 (05:36→12:04)
[2018-07-07 08:00] VITALS: BP_SYST 114
[2018-07-07] MEDS: GABAPENTIN 400 MG CAPSULE PO SCH ×4 (08:24→20:35)
[2018-07-07] MEDS: PANTOPRAZOLE SODIUM 40 MG TAB PO SCH (08:24)
[2018-07-07] MEDS: HYDROcodone/ACETAMIN 7.5-325 MG TAB PO PRN ×2 (08:30→17:38)
[2018-07-07] MEDS: ASCORBIC ACID 500 MG TABLET PO SCH (10:30)
[2018-07-07] MEDS: FERROUS SULFATE 325 MG TABLET.DR PO SCH ×2 (10:30→20:35)
[2018-07-07] MEDS: FOLIC ACID 1 MG, THIAMINE HCL 100 MG, MAGNESIUM SULFATE 1 GM, MVI 10 ML in NACL 0.9% 1,... IV SCH (10:31)
[2018-07-07] MEDS: BALSAM PERU/CASTOR OIL 60 GM OINT...G. TP SCH (10:31)
[2018-07-07 11:21] VITALS: BP_SYST 103
[2018-07-07 16:28] VITALS: BP_SYST 116
[2018-07-07 19:10] VITALS: BP_SYST 119
[2018-07-07] MEDS: DOXYCYCLINE HYCLATE 100 MG CAPSULE PO SCH (20:34)
[2018-07-07] MEDS: CEFEPIME 1 GM in D5W 50 ML IV SCH (20:36)
[2018-07-08] VITALS (7 sets, daily range): BP systolic 114–149
[2018-07-08] MEDS: LORazepam 2 MG/ML VIAL IVP PRN ×5 (00:42→20:14)
[2018-07-08] MEDS: MORPHINE 4 MG/ML INJ. SYRINGE IVP PRN ×3 (00:44→10:05)
[2018-07-08 07:25] LABS: CALCIUM 8.1 mg/dL (8.4-11.0); CREATININE 0.82 mg/dL (0.55-1.30); POTASSIUM 4.5 mmol/L (3.5-5.1)
[2018-07-08 07:40] LABS: ALBUMIN 1.6 g/dL (3.4-4.8); TOTAL BILIRUBIN 0.6 mg/dL (0.0-1.0)
[2018-07-08] MEDS: ASCORBIC ACID 500 MG TABLET PO SCH (08:18)
[2018-07-08] MEDS: HYDROcodone/ACETAMIN 7.5-325 MG TAB PO PRN ×4 (08:18→21:06)
[2018-07-08] MEDS: GABAPENTIN 400 MG CAPSULE PO SCH ×4 (08:18→20:14)
[2018-07-08] MEDS: PANTOPRAZOLE SODIUM 40 MG TAB PO SCH (08:18)
[2018-07-08] MEDS: FERROUS SULFATE 325 MG TABLET.DR PO SCH ×2 (08:18→20:14)
[2018-07-08] MEDS ORDERED: CALCIUM CARBONATE/VITAMIN D3 1 TAB TABLET PO SCH ×2 (09:00→09:13)
[2018-07-08] MEDS ORDERED: POTASSIUM CHLORIDE 20 MEQ/PKT PACKET PO ONE (09:00)
[2018-07-08] MEDS: BALSAM PERU/CASTOR OIL 60 GM OINT...G. TP SCH (09:00)
[2018-07-08 09:17] LABS: HEMATOCRIT 22.4 % (36-54); HEMOGLOBIN 7.3 g/dL (14.0-18.0); MEAN CORPUSCULAR HEMOGLOBIN 30 pg (27-31); MEAN CORPUSCULAR HGB CONC 32 % (32-36); MEAN CORPUSCULAR VOLUME 94 fL (79.0-98.0); RED BLOOD CELL COUNT(AUTO) 2.39 MIL/uL (4.2-6.2); WHITE BLOOD COUNT (AUTO) 3.7 K/uL (4.8-10.8)
[2018-07-08 09:18] LABS: PLATELET COUNT (AUTO) 94 K/uL (130-430)
[2018-07-08] MEDS ORDERED: CALCIUM CARBONATE/VITAMIN D3 1 TAB TABLET PO ONE (09:30)
[2018-07-08] MEDS ORDERED: MAGNESIUM SULFATE 3 GM in D5W 100 ML IV ONE (09:30)
[2018-07-08] MEDS: FOLIC ACID 1 MG, THIAMINE HCL 100 MG, MAGNESIUM SULFATE 1 GM, MVI 10 ML in NACL 0.9% 1,... IV SCH (10:03)
[2018-07-08] MEDS: DOXYCYCLINE HYCLATE 100 MG CAPSULE PO SCH ×2 (10:04→20:13)
[2018-07-08] MEDS: CEFEPIME 1 GM in D5W 50 ML IV SCH ×2 (10:04→20:15)
[2018-07-08 12:21] LABS: ATYPICAL LYMPHOCYTES % 1 % (0-0); BAND % (MANUAL) 1 % (0-6); BASOPHILS % (MANUAL) 0 % (0-2); EOSINOPHILS % (MANUAL) 4 % (0-7); LYMPHOCYTES % (MANUAL) 30 % (20-46); MONOCYTES % (MANUAL) 14 % (0-11)
[2018-07-08] MEDS: KCL 40 mEq in D5W 1000 mL 1,000 ML IV SCH (20:13)
[2018-07-08] MEDS: CALCIUM CARBONATE/VITAMIN D3 1 TAB TABLET PO SCH (20:14)
[2018-07-09 00:37] VITALS: BP_SYST 116
[2018-07-09] MEDS ORDERED: MORPHINE 4 MG/ML INJ. SYRINGE IVP ONE (01:15)
[2018-07-09] MEDS: LORazepam 2 MG/ML VIAL IVP PRN ×5 (01:25→22:43)
[2018-07-09] MEDS: HYDROcodone/ACETAMIN 7.5-325 MG TAB PO PRN ×2 (05:41→10:03)
[2018-07-09 07:57] LABS: MEAN CORPUSCULAR HEMOGLOBIN 30 pg (27-31); MEAN CORPUSCULAR HGB CONC 33 % (32-36); MEAN CORPUSCULAR VOLUME 93 fL (79.0-98.0); PLATELET COUNT (AUTO) 105 K/uL (130-430); RED BLOOD CELL COUNT(AUTO) 2.25 MIL/uL (4.2-6.2); RED CELL DISTRIBUTION WIDTH 17.4 % (9.0-15.0); WHITE BLOOD COUNT (AUTO) 3.6 K/uL (4.8-10.8)
[2018-07-09 08:00] LABS: HEMOGLOBIN 6.8 g/dL (14.0-18.0)
[2018-07-09 08:01] LABS: HEMATOCRIT 20.9 % (36-54)
[2018-07-09 08:09] LABS: PROTHROMBIN TIME 10.4 SECS (9.5-12.5)
[2018-07-09 08:55] VITALS: BP_SYST 131
[2018-07-09] MEDS: BALSAM PERU/CASTOR OIL 60 GM OINT...G. TP SCH (09:00)
[2018-07-09] MEDS: FOLIC ACID 1 MG, THIAMINE HCL 100 MG, MAGNESIUM SULFATE 1 GM, MVI 10 ML in NACL 0.9% 1,... IV SCH (09:10)
[2018-07-09] MEDS: CALCIUM CARBONATE/VITAMIN D3 1 TAB TABLET PO SCH ×2 (09:11→21:43)
[2018-07-09] MEDS: GABAPENTIN 400 MG CAPSULE PO SCH ×4 (09:11→21:44)
[2018-07-09] MEDS: PANTOPRAZOLE SODIUM 40 MG TAB PO SCH (09:11)
[2018-07-09] MEDS: FERROUS SULFATE 325 MG TABLET.DR PO SCH ×2 (09:11→21:44)
[2018-07-09] MEDS: DOXYCYCLINE HYCLATE 100 MG CAPSULE PO SCH ×2 (09:11→21:43)
[2018-07-09] MEDS: CEFEPIME 1 GM in D5W 50 ML IV SCH ×2 (09:11→21:43)
[2018-07-09] MEDS: ASCORBIC ACID 500 MG TABLET PO SCH (09:12)
[2018-07-09] MEDS: KCL 40 mEq in D5W 1000 mL 1,000 ML IV SCH ×3 (10:12→22:46)
[2018-07-09 11:28] VITALS: BP_SYST 119
[2018-07-09 14:28] LABS: BAND % (MANUAL) 2 % (0-6); LYMPHOCYTES % (MANUAL) 28 % (20-46)
[2018-07-09 14:30] LABS: BASOPHILS % (MANUAL) 0 % (0-2); EOSINOPHILS % (MANUAL) 4 % (0-7); MONOCYTES % (MANUAL) 12 % (0-11)
[2018-07-09 15:36] VITALS: BP_SYST 130
[2018-07-09] MEDS: HYDROcodone/ACETAMIN 10-325 MG TAB PO PRN ×2 (16:30→21:48)
[2018-07-09 20:10] VITALS: BP_SYST 124
[2018-07-09 21:30] VITALS: BP_SYST 121
[2018-07-10 00:10] VITALS: BP_SYST 135
[2018-07-10] MEDS: LORazepam 2 MG/ML VIAL IVP PRN ×5 (04:13→21:33)
[2018-07-10] MEDS: HYDROcodone/ACETAMIN 10-325 MG TAB PO PRN ×4 (04:23→21:33)
[2018-07-10 07:24] LABS: WHITE BLOOD COUNT (AUTO) 3.8 K/uL (4.8-10.8)
[2018-07-10 07:25] LABS: HEMATOCRIT 23.4 % (36-54); HEMOGLOBIN 7.8 g/dL (14.0-18.0); MEAN CORPUSCULAR HEMOGLOBIN 31 pg (27-31); MEAN CORPUSCULAR HGB CONC 33 % (32-36); MEAN CORPUSCULAR VOLUME 92 fL (79.0-98.0); RED BLOOD CELL COUNT(AUTO) 2.54 MIL/uL (4.2-6.2); RED CELL DISTRIBUTION WIDTH 16.4 % (9.0-15.0)
[2018-07-10 07:26] LABS: EOSINOPHILS % (AUTO) 2.3 % (0.0-4.0); LYMPHOCYTES % (AUTO) 26.8 % (20.5-51.5); MONOCYTES % (AUTO) 14.3 % (1.7-9.3); NEUTROPHILS % (AUTO) 53.2 % (40.0-70.0)
[2018-07-10 07:27] LABS: BASOPHILS # (AUTO) 0.1 K/uL (0.0-0.2); BASOPHILS % (AUTO) 3.4 % (0.0-2.0); EOSINOPHILS # (AUTO) 0.1 K/uL (0.0-0.4); MONOCYTES # (AUTO) 0.5 K/uL (0.0-1.0)
[2018-07-10 07:36] LABS: CALCIUM 8.3 mg/dL (8.4-11.0); CREATININE 0.7 mg/dL (0.55-1.30); POTASSIUM 4.6 mmol/L (3.5-5.1)
[2018-07-10 08:00] VITALS: BP_SYST 123
[2018-07-10] MEDS: DOXYCYCLINE HYCLATE 100 MG CAPSULE PO SCH ×2 (08:22→21:33)
[2018-07-10] MEDS: FERROUS SULFATE 325 MG TABLET.DR PO SCH ×2 (08:22→21:34)
[2018-07-10] MEDS: CALCIUM CARBONATE/VITAMIN D3 1 TAB TABLET PO SCH ×2 (08:22→21:34)
[2018-07-10] MEDS: ASCORBIC ACID 500 MG TABLET PO SCH (08:22)
[2018-07-10] MEDS: GABAPENTIN 400 MG CAPSULE PO SCH ×4 (08:22→21:33)
[2018-07-10] MEDS: PANTOPRAZOLE SODIUM 40 MG TAB PO SCH (08:22)
[2018-07-10] MEDS: CEFEPIME 1 GM in D5W 50 ML IV SCH ×2 (08:27→21:32)
[2018-07-10] MEDS: BALSAM PERU/CASTOR OIL 60 GM OINT...G. TP SCH (08:29)
[2018-07-10] MEDS: FOLIC ACID 1 MG, THIAMINE HCL 100 MG, MAGNESIUM SULFATE 1 GM, MVI 10 ML in NACL 0.9% 1,... IV SCH (08:34)
[2018-07-10 09:47] LABS: PLATELET COUNT (AUTO) 98 K/uL (130-430)
[2018-07-10] MEDS: KCL 40 mEq in D5W 1000 mL 1,000 ML IV SCH (11:08)
[2018-07-10 12:26] VITALS: BP_SYST 131
[2018-07-10] MEDS ORDERED: *LOVENOX 1MG/KG Q12H/PHARMACY XX ONE (16:00)
[2018-07-10 16:34] VITALS: BP_SYST 137
[2018-07-10 17:00] LABS: INR 1.1 (0.80-1.20); PROTHROMBIN TIME 10.8 SECS (9.5-12.5)
[2018-07-10 20:00] VITALS: BP_SYST 136
[2018-07-10] MEDS: ENOXAPARIN SODIUM 80 MG/0.8 ML SYRINGE SQ SCH (21:35)
[2018-07-11 01:00] VITALS: BP_SYST 137
[2018-07-11] MEDS: HYDROcodone/ACETAMIN 10-325 MG TAB PO PRN ×4 (01:35→19:05)
[2018-07-11] MEDS: LORazepam 2 MG/ML VIAL IVP PRN ×3 (01:35→11:40)
[2018-07-11] MEDS: KCL 40 mEq in D5W 1000 mL 1,000 ML IV SCH ×2 (01:46→13:51)
[2018-07-11 07:31] LABS: CALCIUM 8.3 mg/dL (8.4-11.0); CREATININE 0.79 mg/dL (0.55-1.30); POTASSIUM 4.5 mmol/L (3.5-5.1)
[2018-07-11] MEDS: WARFARIN SODIUM 5 MG TABLET PO SCH ×2 (07:31→18:06)
[2018-07-11 07:32] LABS: PROTHROMBIN TIME 10.4 SECS (9.5-12.5)
[2018-07-11 07:48] LABS: ALBUMIN 1.6 g/dL (3.4-4.8); TOTAL BILIRUBIN 0.6 mg/dL (0.0-1.0)
[2018-07-11 07:51] VITALS: BP_SYST 133
[2018-07-11] MEDS: PANTOPRAZOLE SODIUM 40 MG TAB PO SCH (08:30)
[2018-07-11] MEDS: ASCORBIC ACID 500 MG TABLET PO SCH (08:30)
[2018-07-11] MEDS: CALCIUM CARBONATE/VITAMIN D3 1 TAB TABLET PO SCH (08:31)
[2018-07-11] MEDS: GABAPENTIN 400 MG CAPSULE PO SCH ×3 (08:31→18:05)
[2018-07-11] MEDS: FERROUS SULFATE 325 MG TABLET.DR PO SCH (08:31)
[2018-07-11] MEDS: DOXYCYCLINE HYCLATE 100 MG CAPSULE PO SCH (08:31)
[2018-07-11] MEDS: BALSAM PERU/CASTOR OIL 60 GM OINT...G. TP SCH (08:34)
[2018-07-11] MEDS: ENOXAPARIN SODIUM 80 MG/0.8 ML SYRINGE SQ SCH (08:35)
[2018-07-11] MEDS ORDERED: ENOXAPARIN SODIUM 80 MG/0.8 ML SYRINGE ONE (08:49)
[2018-07-11 08:53] LABS: TOTAL IRON BIND. CAPACITY 186 ug/dL (250-450)
[2018-07-11 09:01] LABS: BILIRUBIN,URINE NEGATIVE (NEGATIVE); BLOOD, URINE NEGATIVE (NEGATIVE); CLARITY/URINE CLEAR (CLEAR); COLOR,URINE YELLOW (YELLOW); GLUCOSE,URINE NEGATIVE (NEGATIVE); KETONES,URINE NEGATIVE (NEGATIVE); LEUKOCYTE ESTERASE ,URINE NEGATIVE (NEGATIVE); NITRITE, URINE NEGATIVE (NEGATIVE); PH,URINE 7.5 (5.0-8.0); PROTEIN URINE NEGATIVE (NEGATIVE); UROBILINOGEN,URINE 0.2 (0.2-1.0)
[2018-07-11 09:31] LABS: BASOPHILS # (AUTO) 0.1 K/uL (0.0-0.2); BASOPHILS % (AUTO) 2.9 % (0.0-2.0); EOSINOPHILS # (AUTO) 0.1 K/uL (0.0-0.4); EOSINOPHILS % (AUTO) 2.6 % (0.0-4.0); HEMATOCRIT 23.7 % (36-54); HEMOGLOBIN 7.7 g/dL (14.0-18.0); MEAN CORPUSCULAR HEMOGLOBIN 30 pg (27-31); MEAN CORPUSCULAR HGB CONC 32 % (32-36); MEAN CORPUSCULAR VOLUME 93 fL (79.0-98.0); MONOCYTES # (AUTO) 0.5 K/uL (0.0-1.0); MONOCYTES % (AUTO) 14.4 % (1.7-9.3); NEUTROPHILS # (AUTO) 1.9 K/uL (1.8-7.7); NEUTROPHILS % (AUTO) 52.1 % (40.0-70.0); PLATELET COUNT (AUTO) 105 K/uL (130-430); RED BLOOD CELL COUNT(AUTO) 2.54 MIL/uL (4.2-6.2); RED CELL DISTRIBUTION WIDTH 16.6 % (9.0-15.0); WHITE BLOOD COUNT (AUTO) 3.7 K/uL (4.8-10.8)
[2018-07-11] MEDS: FOLIC ACID 1 MG, THIAMINE HCL 100 MG, MAGNESIUM SULFATE 1 GM, MVI 10 ML in NACL 0.9% 1,... IV SCH (09:41)
[2018-07-11] MEDS: CEFEPIME 1 GM in D5W 50 ML IV SCH (09:41)
[2018-07-11 10:13] VITALS: BP_SYST 133
[2018-07-11 11:55] VITALS: BP_SYST 135
[2018-07-11 18:36] VITALS: BP_SYST 127
== END 2018-07-11 20:20 | DRG 571 ==
LOC: SMU 17:59 → STU 18:04 → SMU 07-03 22:49
PROVIDERS: ADMIT Internal Medicine; ATTEND Internal Medicine
PROC: 0JBQ0ZZ Excision of Right Foot Subcutaneous Tissue and Fascia, Open Approach (ICD-10-PCS; principal; 2018-07-06 10:45)
PROC: 30233N1 Transfusion of Nonautologous Red Blood Cells into Peripheral Vein, Percutaneous Approach (ICD-10-PCS; 2018-07-09)
PROC: 02HV33Z Insertion of Infusion Device into Superior Vena Cava, Percutaneous Approach (ICD-10-PCS; 2018-07-10)
PROC: B548ZZA Ultrasonography of Superior Vena Cava, Guidance (ICD-10-PCS; 2018-07-10)
DX: L97.419 Non-pressure chronic ulcer of right heel and midfoot with unspecified severity (principal); M86.671 Other chronic osteomyelitis, right ankle and foot; E87.1 Hypo-osmolality and hyponatremia; D61.818 Other pancytopenia; I82.A11 Acute embolism and thrombosis of right axillary vein; E46 Unspecified protein-calorie malnutrition; Z68.1 Body mass index [BMI] 19.9 or less, adult; D73.1 Hypersplenism; E87.6 Hypokalemia; F10.20 Alcohol dependence, uncomplicated; K70.30 Alcoholic cirrhosis of liver without ascites; L84 Corns and callosities; E80.6 Other disorders of bilirubin metabolism; D64.9 Anemia, unspecified; L89.521 Pressure ulcer of left ankle, stage 1; D50.9 Iron deficiency anemia, unspecified; F32.9 Major depressive disorder, single episode, unspecified; Z91.19 Patient's noncompliance with other medical treatment and regimen
CPT/HCPCS: 36415; 71045; 80048; 80053; 81003; 82728; 83540-TC; 83550-TC; 83735-TC; 84484; 85007; 85025; 85027; 85610-TC; 85730-TC; 86886; 86900; 86901; 86920; 87070-TC; 87081; 88304; 93923; 93971; 97110-GP; 97116-GP; 97530-GP; C1751; C1769; G0378; J0692; J0696; J1650; J2001; J2060; J2250; J2270; J2405; J2543; J2704; J3010; J3411; J3475; J3480; J3490; J7030; J7040; J7050; J7060; P9021